=== PATIENT | male | born 2005 | race Caucasian/White ===

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

== ENCOUNTER 2024-04-08 19:00 | Inpatient (IN) | payer MEDICAID, OTHER ==
[2024-04-08 20:09] LABS: Amphetamine Screen,Urine Detected (NotDetected); Barbiturate Screen,Urine Not Detected (NotDetected); Benzodiazepines Screen,Urine Not Detected (NotDetected); Cocaine Screen,Urine Not Detected (NotDetected); Methadone Screen, Urine Not Detected (NotDetected); Opiate Screen,Urine Not Detected (NotDetected); Oxycodone Screen, Urine Not Detected (NotDetected); Phencyclidine Screen,Urine Not Detected (NotDetected); Tricyclic Antidepressant,Urine Not Detected (NotDetected); Urn Cannabinoid Scrn Detected (NotDetected)
[2024-04-08] MEDS ORDERED: HALOPERIDOL LACTATE 5 MG/ML 1 ML VIAL IM PRN (22:53)
[2024-04-08] MEDS ORDERED: QUEtiapine 25 MG TAB PO PRN (22:53)
[2024-04-08] MEDS ORDERED: ACETAMINOPHEN TAB 325 MG TAB PO PRN (22:53)
[2024-04-08] MEDS ORDERED: IBUPROFEN 600 MG TAB PO PRN (22:53)
[2024-04-08] MEDS ORDERED: MAG HYDROX/AL HYDROX/SIMETH 355 ML BOTTLE PO PRN (22:53)
[2024-04-08] MEDS ORDERED: LORazepam 2 MG/ML INJ IM PRN (22:53)
[2024-04-08] MEDS ORDERED: MAGNESIUM HYDROXIDE 2,400 MG/30 ML CUP PO PRN (22:53)
[2024-04-08] MEDS ORDERED: haloperidoL 5 MG TAB PO PRN (22:53)
[2024-04-08] MEDS ORDERED: LORazepam 1 MG TAB PO PRN (22:53)
--- NOTE | 2024-04-08 23:35 | ED ---
Psych HPI - General Chief Complaint: Psychiatric Symptoms Stated Complaint: mental health Time Seen by Provider: 04/08/24 19:18 Source: patient, family Mode of arrival: ambulatory Limitations: no limitations - History of Present Illness Initial Comments: Patient is a 19-year-old man who is here with complaints of mood swings and of having suicidal ideation. MD Complaint: other Onset/Timin -: days(s) Associated Psychiatric Symptoms: suicidal ideation, racing thoughts Quality: getting worse Improves With: none Worsens With: none Associated Symptoms: denies other symptoms - Related Data Home Medications Medication Instructions Recorded Confirmed Dextroamphetamine/Amphetamine 20 mg PO BID 04/08/24 04/08/24 [Dextroamphetamine/Amphetamine 20 mg Tab] Allergies Allergy/AdvReac Type Severity Reaction Status Date / Time No Known Allergies Allergy Verified 04/08/24 23:43 Review of Systems ROS Statement: Those systems with pertinent positive or pertinent negative responses have been documented in the HPI. ROS Other: All systems not noted in ROS Statement are negative. Constitutional: Denies: fever, chills Respiratory: Denies: cough, dyspnea Cardiovascular: Denies: chest pain, palpitations, edema Gastrointestinal: Denies: abdominal pain, nausea, vomiting, diarrhea Past Medical History Past Medical History: No Reported History History of Any Multi-Drug Resistant Organisms: None Reported Past Surgical History: No Surgical Hx Reported Past Psychological History: ADD/ADHD Smoking Status: Current every day smoker Past Alcohol Use History: None Reported, Occasional Past Drug Use History: Cocaine, Heroin, Marijuana, Opiates, Prescription Drug Abuse General Exam Limitations: no limitations General appearance: alert, in no apparent distress Head exam: Present: atraumatic, normocephalic Eye exam: Present: normal appearance. Absent: scleral icterus, conjunctival injection ENT exam: Present: normal oropharynx Neck exam: Present: normal inspection Respiratory exam: Present: normal lung sounds bilaterally. Absent: respiratory distress, wheezes, rales, rhonchi, stridor, accessory muscle use Cardiovascular Exam: Present: regular rate, normal rhythm, normal heart sounds. Absent: systolic murmur, diastolic murmur, rubs, gallop GI/Abdominal exam: Present: soft. Absent: distended, tenderness, guarding Extremities exam: Present: normal inspection, normal capillary refill. Absent: pedal edema Neurological exam: Present: alert, oriented X3 Psychiatric exam: Present: manic, suicidal ideation. Absent: depressed, agitated, homicidal ideation Skin exam: Present: warm, dry, intact, normal color. Absent: rash Course Vital Signs 04/08/24 04/08/24 19:06 23:48 Temperature 98.4 F 98.3 F Pulse Rate 89 66 Respiratory 18 17 Rate Blood Pressure 119/80 120/74 O2 Sat by Pulse 99 100 Oximetry Medical Decision Making - Medical Decision Making Was pt. sent in by a medical professional or institution (, PA, TRIM STENCIL MAKER, urgent care, hospital, or usp...) When possible be specific @ -[No] Did you speak to anyone other than the patient for history (EMS, parent, family, police, friend...)? What history was obtained from this source @ -[No] Did you review nursing and triage notes (agree or disagree)? Why? @ -[I reviewed and agree with nursing and triage notes] Were old charts reviewed (outside hosp., previous admission, EMS record, old EKG, old radiological studies, urgent care reports/EKG's, usp records)? Report findings @ -[No old charts were reviewed] Differential Diagnosis (chest pain, altered mental status, abdominal pain women, abdominal pain men, vaginal bleeding, weakness, fever, dyspnea, syncope, headach e, dizziness, GI bleed, back pain, seizure, CVA, palpatations, mental health, musculoskeletal)? @ -[Differential Mental Health Depression, anxiety, bipolar, psychosis, schizophrenia, borderline personality, situational depression, adjustment disorder, behavioral disorder, brain tumor, malingering, substance abuse, encephalopathy, medication reaction, dementia, hypothyroidism, degenerative neurologic disorder, lupus.... This is not meant to be all-inclusive list EKG interpreted by me (3pts min.). @ -[As above] X-rays interpreted by me (1pt min.). @ -[None done] CT interpreted by me (1pt min.). @ -[None done] U/S interpreted by me (1pt. min.). @ -[None done] What testing was considered but not performed or refused? (CT, X-rays, U/S, labs)? Why? @ -[None] What meds were considered but not given or refused? Why? @ -[None] Did you discuss the management of the patient with other professionals (professionals i.e. , PA, TRIM STENCIL MAKER, lab, RT, psych nurse, manager social, stiff leg operator, teacher, command and control officer, case filler)? Give summary @ -[Case discussed with EPS personnel Was smoking cessation discussed for >3mins.? @ -[No] Was critical care preformed (if so, how long)? @ -[No] Were there social determinants of health that impacted care today? How? (Homelessness, low income, unemployed, alcoholism, drug addiction, transportation, low edu. Level, literacy, decrease access to med. care, intermediate, rehab)? @ -[No] Was there de-escalation of care discussed even if they declined (Discuss DNR or withdrawal of care, Hospice)? DNR status @ -[No] What co-morbidities impacted this encounter? (DM, HTN, Smoking, COPD, CAD, Cancer, CVA, ARF, Chemo, Hep., AIDS, mental health diagnosis, sleep apnea, morbid obesity)? @ -[None] Was patient admitted / discharged? Hospital course, mention meds given and route, prescriptions, significant lab abnormalities, going to OR and other pertinent info. @ -[Patient is a 19-year-old man with worsening of his underlying psychiatric issues. He does appear to be having manic symptoms and having suicidal ideation as well. Patient will be admitted to have further evaluation and treatment Undiagnosed new problem with uncertain prognosis? @ -[No] Drug Therapy requiring intensive monitoring for toxicity (Heparin, Nitro, Insulin, Cardizem)? @ -[No] Were any procedures done? @ -[No] Diagnosis/symptom? @ -[Mood disorder with suicidal ideation. Acute, or Chronic, or Acute on Chronic? @ -[Acute Uncomplicated (without systemic symptoms) or Complicated (systemic symptoms)? @ -[Uncomplicated Side effects of treatment? @ -[No] Exacerbation, Progression, or Severe Exacerbation? @ -[No] Poses a threat to life or bodily function? How? (Chest pain, [place], AR, pneumonia, PE, COPD, DKA, ARF, appy, cholecystitis, CVA, Diverticulitis, Homicidal, Suicidal, threat to staff... and all critical care pts) @ -[Yes there is risk of progression to suicide attempt/completion - Lab Data Result diagrams: 04/09/24 08:49 04/09/24 08:49 Lab Results 04/08/24 04/08/24 04/08/24 Range/Units 19:31 19:31 19:56 Urine Color Yellow Urine Appearance Clear (Clear) Urine pH 6.0 (5.0-8.0) Ur Specific [place] 1.027 (1.001-1.035) Urine Protein 2+ H (Negative) Urine Glucose (UA) Negative (Negative) Urine Ketones Negative (Negative) Urine Blood Negative (Negative) Urine Nitrite Negative (Negative) Urine Bilirubin Negative (Negative) Urine Urobilinogen 2.0 (<2.0) mg/dL Ur Leukocyte Esterase Negative (Negative) Urine WBC 3 (0-5) /hpf Ur Squamous Epith Cells <1 (0-4) /hpf Amorphous Sediment Rare H (None) /hpf Urine Bacteria Rare H (None) /hpf Hyaline Casts 5 H (0-2) /lpf Urine Mucus Moderate H (None) /hpf Urine Opiates Screen Not Detected (NotDetected) Ur Oxycodone Screen Not Detected (NotDetected) Urine Methadone Screen Not Detected (NotDetected) Ur Barbiturates Screen Not Detected (NotDetected) U Tricyclic Antidepress Not Detected (NotDetected) Ur Phencyclidine Scrn Not Detected (NotDetected) Ur Amphetamines Screen Detected H (NotDetected) U Methamphetamines Scrn Detected H (NotDetected) U Benzodiazepines Scrn Not Detected (NotDetected) Urine Cocaine Screen Not Detected (NotDetected) U Marijuana (THC) Screen Detected H (NotDetected) SARS-CoV-2 (PCR) Not Detected (Not Detectd) Disposition Clinical Impression: Mood disorder, Suicidal ideation, Acute psychosis Disposition: ADMITTED IP TO THIS [facility] Condition: Fair Is patient prescribed a controlled substance at d/c from ED?: No
[2024-04-09 01:29] LABS: Amorphous Sediment,Urine Rare /hpf; Appearance,Urine Clear (Clear); Bacteria,Urine Rare /hpf; Bilirubin,Urine Negative (Negative); Blood,Urine Negative (Negative); Color,Urine Yellow; Glucose,Urine (UA) Negative (Negative); Hyaline Casts,Urine 5 /lpf (0-2); Ketones,Urine Negative (Negative); Leukocyte Esterase,Urine Negative (Negative); Mucus,Urine Moderate /hpf; Nitrite,Urine Negative (Negative); Protein,Urine 2+ (Negative); Specific Gravity,Urine 1.027 (1.001-1.035); Squamous Epithelial Cell,Urine <1 /hpf (0-4); WBC,Urine 3 /hpf (0-5)
[2024-04-09 09:28] LABS: Basophils # (A) 0.1 k/uL (0-0.2); Basophils % (A) 1 %; Eosinophils # (A) 0.5 k/uL (0-0.7); Eosinophils % (A) 6 %; HCT 46.1 % (39.0-53.0); HGB 15.2 gm/dL (13.0-17.5); Lymphocytes # (A) 3.3 k/uL (1.0-4.8); Lymphocytes % (A) 40 %; MCH 29.7 pg (25.0-35.0); Mean Platelet Volume 7.7; Monocytes # (A) 0.6 k/uL (0-1.0); Monocytes % (A) 7 %; Neutrophils # (A) 3.4 k/uL (1.3-7.7); Neutrophils % (A) 42 %; Platelet Count 286 k/uL (150-450); RBC 5.12 m/uL (4.30-5.90); RDW 13.5 % (11.5-15.5); WBC 8.1 k/uL (4.0-11.0)
[2024-04-09 09:45] LABS: ALT 17 U/L (4-49); AST 26 U/L (17-59); African American GFR (CKD) >90 (>60 ml/min/1.73 sqM); Albumin 4.2 g/dL (3.5-5.0); Alkaline Phosphatase 78 U/L (38-126); Anion Gap 7 mmol/L; Bilirubin, Delta 0.1 mg/dL (0.0-0.2); Bilirubin,Unconjugated 0.7 mg/dL (0.0-1.1); Blood Urea Nitrogen 13 mg/dL (9-20); Calcium 9.5 mg/dL (8.4-10.2); Carbon Dioxide 28 mmol/L (22-30); Chloride 107 mmol/L (98-107); Glucose 87 mg/dL (74-99); Non-African American GFR(CKD) >90 (>60 ml/min/1.73 sqM); Potassium 4.5 mmol/L (3.5-5.1); Sodium 142 mmol/L (137-145); Total Bilirubin 0.8 mg/dL (0.2-1.3)
[2024-04-09] MEDS: NICOTINE 14MG/24HR PATCH TRANSDERM SCH (10:06)
[2024-04-09] MEDS ORDERED: traZODone HCL 50 MG TAB PO PRN (11:52)
--- NOTE | 2024-04-09 12:12 | P.HP ---
Psychiatric H&P - . H&P Date: 04/09/24 History & Physical: Allergies Allergy/AdvReac Type Severity Reaction Status Date / Time No Known Allergies Allergy Verified 04/08/24 23:43 Vital Signs Temp 98.1 F 04/09/24 00:54 Pulse 60 04/09/24 00:54 Resp 15 04/09/24 00:54 BP 140/81 04/09/24 00:54 Pulse Ox 100 04/09/24 00:54 FiO2 Intake & Output 04/08/24 04/09/24 04/09/24 18:59 06:59 18:59 Weight 90.974 kg Laboratory Last Values Urine Color Yellow 04/08/24 19:31 Urine Appearance Clear (Clear) 04/08/24 19:31 Urine pH 6.0 (5.0-8.0) 04/08/24 19:31 Ur Specific [place] 1.027 (1.001-1.035) 04/08/24 19:31 Urine Protein 2+ (Negative) H 04/08/24 19:31 Urine Glucose (UA) Negative (Negative) 04/08/24 19:31 Urine Ketones Negative (Negative) 04/08/24 19:31 Urine Blood Negative (Negative) 04/08/24 19:31 Urine Nitrite Negative (Negative) 04/08/24 19:31 Urine Bilirubin Negative (Negative) 04/08/24 19:31 Urine Urobilinogen 2.0 mg/dL (<2.0) 04/08/24 19:31 Ur Leukocyte Esterase Negative (Negative) 04/08/24 19:31 Urine WBC 3 /hpf (0-5) 04/08/24 19:31 Ur Squamous Epith Cells <1 /hpf (0-4) 04/08/24 19:31 Amorphous Sediment Rare /hpf (None) H 04/08/24 19:31 Urine Bacteria Rare /hpf (None) H 04/08/24 19:31 Hyaline Casts 5 /lpf (0-2) H 04/08/24 19:31 Urine Mucus Moderate /hpf (None) H 04/08/24 19:31 Urine Opiates Screen Not Detected (NotDetected) 04/08/24 19:31 Ur Oxycodone Screen Not Detected (NotDetected) 04/08/24 19:31 Urine Methadone Screen Not Detected (NotDetected) 04/08/24 19:31 Ur Barbiturates Screen Not Detected (NotDetected) 04/08/24 19:31 U Tricyclic Antidepress Not Detected (NotDetected) 04/08/24 19:31 Ur Phencyclidine Scrn Not Detected (NotDetected) 04/08/24 19:31 Ur Amphetamines Screen Detected (NotDetected) H 04/08/24 19:31 U Methamphetamines Scrn Detected (NotDetected) H 04/08/24 19:31 U Benzodiazepines Scrn Not Detected (NotDetected) 04/08/24 19:31 Urine Cocaine Screen Not Detected (NotDetected) 04/08/24 19:31 U Marijuana (THC) Screen Detected (NotDetected) H 04/08/24 19:31 SARS-CoV-2 (PCR) Not Detected (Not Detectd) 04/08/24 19:56 04/09/24 08:48 IDENTIFYING DATA: Patient is a 19-year-old male. Lives between his dad and ian's house. Single, no children. Unemployed. HPI: Patient presented to the hospital on 04/08. As per EPS note, "Patient presented to ED with family for "psychotic episodes. Pt has attempted suicide 3 times in the last 3 weeks. Pt states he has a plan ot overdose." Patient assessed in ER14 from [id number]. Patient states chief complaint "mental health". Patient verbalizes suicidal ideation with a plan to cut self. Patient verbalizes two previous suicide attempts via overdose, last being approx 3 months ago. Patient has history of self harm including cigarette burn and cutting hand superficially. Patient denies any recent stressors, verbalizes he lost his job about 6 months ago when asked about employment. Patient verbalizes homicidal ideations stating "I can kill anyone when I get mad" denies any specific target, and denies any attempts to harm others. Patient verbalizes paranoia stating he thinks people are trying to read his mind. Patient verbalizes auditory hallucinations of voices talking, states he talks back and they respond, but they are not his own thoughts. Patient verbalizes visual hallucinations of "objects changing", describes that if he is looking at a picture the picture will be moving around. Patient states he also sees faces in objects, and sees moving shadows. Patient feels like he has no support system, feels often that his friends and family are messing with his head. Patient verbalizes substance use including meth, cocaine, amphetamines and marijuana. States his only home medication is Adderall. Patient verbalizes alcohol use 1-2x/week, last drink 5 days to 1 wk ago. States he drinks about a fifth when drinking. States he drinks "as much as I can until I pass out". Patient denies anything he is looking foward to or any goals. Patient denies any hobbies. Patient verbalizes he has poor appetite, stating he goes multiple days without eating. Verbalizes poor sleep, sleeping every 3-6 days but awake for multiple days with no sleep related to substance use." Upon today's interview, he states he got picked up by the police yesterday, after 'freaking out'. And they brought him to the hospital. He states he was walking around with a knife. He states he does not know why he had a knife. He states he was using alot of meth daily, for the past 6 months. He has been hearing voices, generally repeating what he says in his mind, or what others say. He claims he gets anxiety when he is social. He states he is depressed, and thinks about getting revenge. He is currently not having AH or VH. He states that he doesn't really have any SI/HI. He does present with some paranoia, thinking someone is out to get him. He said just in general, no specific. He states he is hungry, but he does not like to ask people for things. He does not endorse good sleep. patient was fairly constricted, poor eye contact, mildly irritable. poor hygiene. Patient denies any suicidal or homicidal ideations intent or plan. At this time patient denies any auditory or visual hallucinations. Patient admits to using methamphetamines, cocaine, marijuana, pain killers, benzos, alcohol, cigarettes. PAST PSYCHIATRIC HISTORY: Patient states that he has been diagnosed with ADHD. Patient denies being on any psychiatric medications. Patient denies any previous psychiatric hospitalizations. Patient denies any psychiatric outpatient follow- up. Patient states he has had 4 attempts at suicide, two by cutting, two by OD PMH:As per ER note ALLERGIES: as per EMR CHEMICAL DEPENDENCY HISTORY: as per HPI FAMILY PSYCHIATRIC/SUBSTANCE USE HISTORY: brother has been admitted psychiatrically twice SOCIAL HISTORY: Patient was born and raised in [place], [place]. Dropped out in high school. Stopped passing school in 5th grade. Single, lives between his dad and ian's house. No children. Unemployed, and denies legal problems.. MENTAL STATUS EXAM: General Appearance: Patient appears to be stated age is alert, [directable, and attempts to cooperate]. Patient appears to have [poor] hygiene and grooming. tall, dressed casually, wearing a hoodie with the boyd on. Behavior: Patient is seated without any agitated behavior. Poor eye contact, withdrawn Speech: Patient's speech is fluent and nonpressured. monotone Mood/Affect: Patient reports their mood is [depressed], affect is congruent and constricted Suicidality/Homicidality: Patient denies having any homicidal ideation intent or plan. [Denies any suicidal ideations intent or plan] Perceptions: Patient denies any visual hallucinations [and denies any auditory hallucinations] Though content/process: [There is no evidence of any delusional thought content and thought process guarded and vague Memory and concentration: AOX3, grossly intact for the purposes of this session. Can spell "WORLD" backwards Judgment and insight: [poor] STRENGTHS/WEAKNESSES: strength is that patient is [resilient]. Weakness is that patient [has poor judgment and is impulsive] INTELLECT: [average] IMPRESSIONS: psychosis, unspecified benzodiazepine abuse opiate abuse cocaine abuse methamphetamine abuse [nicotine dependance] [cannabis use disorder] homelessness PLAN: -Patient is admitted under [voluntary] status to MHU for stabilization of psychiatric symptoms and safety. Patient has signed adult voluntary form and medication consent and is placed in patient's chart. -Medications : Will start patient on Geodon 20mg qhs for mood stabilization/psychosis, Zoloft 25mg qhs for mood/anxiety, trazodone 50 qhs prn for insomnia -Ativan [and Haldol] PRN for agitation/aggression -Order EKG -Patient was counselled on substance abuse and desired to cut back on use] -Patient was informed of the risks, benefits and side effects of the medication and patient verbally consented to taking the medications. -Internal Medicine consult to perform medical evaluation and physical. -NRT - [nicotine patch] -SW on board for discharge planning. Encourage patient to participate in groups to work on coping skills.
--- NOTE | 2024-04-09 14:28 | P.CONS ---
History of Present Illness - Reason for Consult Consult date: 04/09/24 [facility] admission - History of Present Illness B[place]ark is a 19-year-old male known to the practice. He is primarily treating the office for attention deficit disorder. Patient, psychiatry already. He denies any current health issues other than his skin becomes blotchy when he becomes dehydrated. He presented to emergency room yesterday because of a psychotic episode and suicide attempt. He currently denies any chest pain, pressure, shortness of breath, nausea or vomiting Staff indicate substance abuse is a problem Review of Systems All systems: negative Past Medical History Past Medical History: No Reported History History of Any Multi-Drug Resistant Organisms: None Reported Past Surgical History: No Surgical Hx Reported Past Anesthesia/Blood Transfusion Reactions: No Reported Reaction Past Psychological History: ADD/ADHD, Anxiety, Depression, PTSD Smoking Status: Current every day smoker, Vaper Past Alcohol Use History: Heavy, Occasional Past Drug Use History: Cocaine, Heroin, Marijuana, Methamphetamine, Opiates, Prescription Drug Abuse Medications and Allergies Home Medications Medication Instructions Recorded Confirmed Type Dextroamphetamine/Amphetamine 20 mg PO BID 04/08/24 04/08/24 History [Dextroamphetamine/Amphetamine 20 mg Tab] Allergies Allergy/AdvReac Type Severity Reaction Status Date / Time No Known Allergies Allergy Verified 04/08/24 23:43 Physical Exam Vitals: Vital Signs Temp Pulse Pulse Resp BP BP Pulse Ox 04/09/24 08:00 95 18 128/87 95 04/09/24 00:54 98.1 F 60 15 140/81 100 04/08/24 23:48 98.3 F 66 17 120/74 100 04/08/24 19:06 98.4 F 89 18 119/80 99 Intake and Output 04/08/24 04/09/24 04/09/24 22:59 06:59 14:59 Other: Weight 90.718 kg 90.974 kg GENERAL: Thin male and in no acute distress. HEAD: Atraumatic, normocephalic. EYES: Pupils equal round and reactive to light, extraocular movements intact, sclera anicteric, conjunctiva are normal. ENT:nares patent, oropharynx clear without exudates. Moist mucous membranes. NECK: Normal range of motion, supple without lymphadenopathy or JVD, no thyromegaly LUNGS: Breath sounds clear to auscultation bilaterally and equal. No wheezes rales or rhonchi. HEART: Regular rate and rhythm without murmurs, rubs or gallops.S1S2 Normal ABDOMEN: Soft, nontender, normoactive bowel sounds. No guarding, no rebound. No masses appreciated. EXTREMITIES: Normal range of motion, no pitting or edema. No clubbing or cyanosis. NEUROLOGICAL: Cranial nerves II through XII grossly intact. Normal speech, normal gait. PSYCH: Patient is not making eye contact with me, his head is down, he is answering questions with short brief answers. Affect is depressed SKIN: Warm, Dry, normal turgor, no rashes or lesions noted. Results CBC & Chem 7: 04/09/24 08:49 04/09/24 08:49 Labs: Abnormal Lab Results - Last 24 Hours (Table) 04/08/24 04/08/24 Range/Units 19:31 19:31 Urine Protein 2+ H (Negative) Amorphous Sediment Rare H (None) /hpf Urine Bacteria Rare H (None) /hpf Hyaline Casts 5 H (0-2) /lpf Urine Mucus Moderate H (None) /hpf Ur Amphetamines Screen Detected H (NotDetected) U Methamphetamines Scrn Detected H (NotDetected) U Marijuana (THC) Screen Detected H (NotDetected) Assessment and Plan (1) Methamphetamine abuse Current Visit: Yes Status: Acute Code(s): F15.10 - OTHER STIMULANT ABUSE, UNCOMPLICATED SNOMED Code(s): 428074094 (2) ADHD Current Visit: Yes Status: Acute Code(s): F90.9 - ATTENTION-DEFICIT HYPERACTIVITY DISORDER, UNSPECIFIED TYPE SNOMED Code(s): 083244352 (3) Polysubstance (excluding opioids) dependence Current Visit: Yes Status: Acute Code(s): F19.20 - OTHER PSYCHOACTIVE SUBSTANCE DEPENDENCE, UNCOMPLICATED SNOMED Code(s): 30061975 (4) Acute psychosis Current Visit: Yes Status: Acute Code(s): F23 - BRIEF PSYCHOTIC DISORDER SNOMED Code(s): 86940017386876 (5) Mood disorder Current Visit: Yes Status: Acute Code(s): F39 - UNSPECIFIED MOOD [AFFECTIVE] DISORDER SNOMED Code(s): 16216847 (6) Suicidal ideation Current Visit: Yes Status: Acute Code(s): R45.851 - SUICIDAL IDEATIONS SNOMED Code(s): 8759942 Plan: Medically as he appears stable, his labs are normal with the exception of protein in his urine, he was positive for marijuana methamphetamine and amphetamines, kidney functions CBC white count are normal. He will follow-up with psychiatry and God willing will overcome his drug abuse and dependence issues. Will follow-up with him as needed. Thank you for allowing us to participate in his care
[2024-04-09 15:13] LABS: Chol/HDL Ratio 4.08 Ratio; LDL Cholesterol,Calculated 117.2 mg/dL (0.0-131.0)
[2024-04-09] MEDS: SERTRALINE 25 MG TAB PO SCH (21:21)
[2024-04-09] MEDS: ZIPRASIDONE 20 MG CAP PO SCH (21:21)
--- NOTE | 2024-04-10 11:44 | P.PN ---
Progress Note - Text Progress Note Date: 04/10/24 Interval History: Patient was seen laying in bed today, auto service writer approached patient to speak with him in the office however patient declined at this time, did not want to answer any questions. MENTAL STATUS EXAM: General Appearance: Patient appears to be stated age is alert, uncooperative. Patient appears to have poor hygiene and grooming. tall, dressed casually, wearing a hoodie with the boyd on. Behavior: Patient is seated without any agitated behavior. Poor eye contact, withdrawn. uncooperative. Speech: Patient's speech is fluent and nonpressured. monotone Mood/Affect: Unable to assess Suicidality/Homicidality: Unable to assess Perceptions: Unable to assess Though content/process: [place] Memory and concentration: Unable to assess Judgment and insight: Poor IMPRESSIONS: psychosis, unspecified benzodiazepine abuse opiate abuse cocaine abuse methamphetamine abuse Nicotine dependance Cannabis use disorder homelessness PLAN: -Patient is admitted under voluntary status to MHU for stabilization of psychiatric symptoms and safety. Patient has signed adult voluntary form and [facility] consent and is placed in patient's chart. -Medications : Geodon 20mg qhs for mood stabilization/psychosis, increase Zoloft 50 mg qhs for mood/anxiety, trazodone 50 qhs prn for insomnia -Ativan and Haldol PRN for agitation/aggression -reviewed ekg -NRT -nicotine patch -SW on board for discharge planning. Encourage patient to participate in groups to work on coping skills.
[2024-04-10] MEDS: SERTRALINE 50 MG TAB PO SCH (21:22)
--- NOTE | 2024-04-11 10:07 | P.PN ---
Progress Note - Text Progress Note Date: 04/11/24 Interval History: Patient was seen laying in bed today, he was agreeable to speak to entry writer today. He claims that his mood is still poor at times, he has been been continuing to mainly isolate in his room laying in bed. States that he had on and off sleep last night. Claims that he is only going to lunch and dinner. Not going to any groups at this time. Continues to endorse anhedonia. Not endorsing any auditory or visual hallucinations. Denying any suicidal homicidal ideations intent or plan. He has been taking his medications not reporting any side effects at this time. MENTAL STATUS EXAM: General Appearance: Patient appears to be stated age is alert, mainly uncooperative. Patient appears to have poor hygiene and grooming. tall, dressed casually, wearing a hoodie with the boyd on. Behavior: Patient is seated without any agitated behavior. Poor eye contact, withdrawn. Speech: Patient's speech is fluent and nonpressured. monotone Mood/Affect: Claims that his mood is still depressed, affect is constricted. Suicidality/Homicidality: denies Perceptions: denies Though content/process: [place], poverty of content Memory and concentration: alert and oriented x3 Judgment and insight: Poor, improving mildly IMPRESSIONS: psychosis, unspecified benzodiazepine abuse opiate abuse cocaine abuse methamphetamine abuse Nicotine dependance Cannabis use disorder homelessness PLAN: -Patient is admitted under voluntary status to MHU for stabilization of psychiatric symptoms and safety. Patient has signed adult voluntary form and medication consent and is placed in patient's chart. -Medications : d/c Geodon and replace with Invega 3 mg qhs for psychosis/mood stabilization, Zoloft 50 mg qhs for mood/anxiety, trazodone 50 qhs prn for insomnia -Ativan and Haldol PRN for agitation/aggression -NRT -nicotine patch -SW on board for discharge planning. Encourage patient to participate in groups to work on coping skills. continuing to refuse rehab.
[2024-04-11] MEDS: PALIPERIDONE 3 MG TAB.ER.24 PO SCH (22:44)
--- NOTE | 2024-04-12 11:18 | P.PN ---
Progress Note - Text Progress Note Date: 04/12/24 Interval History: Patient was seen laying in bed today, he was agreeable to speak to law writer today. Patient appeared to be less irritable today. He continues to be fairly concrete, withdrawn to his room. Only coming out for meals. States that he is not participating in groups. Continues to endorse depression and anxiety. He claims that his sleep continues to be poor. Continues to have anhedonia. Not going to any groups at this time. Instructed affect. Not endorsing any auditory or visual hallucinations. Denying any suicidal homicidal ideations intent or plan. He has been taking his medications not reporting any side effects at this time. MENTAL STATUS EXAM: General Appearance: Patient appears to be stated age is alert, mainly uncooperative. Patient appears to have poor hygiene and grooming. tall, dressed casually Behavior: Patient is seated without any agitated behavior. Poor eye contact, withdrawn. Speech: Patient's speech is fluent and nonpressured. monotone Mood/Affect: Claims that his mood is still depressed, affect is constricted. Suicidality/Homicidality: denies Perceptions: denies Though content/process: [place], poverty of content Memory and concentration: alert and oriented x3 Judgment and insight: Poor, improving mildly IMPRESSIONS: psychosis, unspecified benzodiazepine abuse opiate abuse cocaine abuse methamphetamine abuse Nicotine dependance Cannabis use disorder homelessness PLAN: -Patient is admitted under voluntary status to MHU for stabilization of psychiatric symptoms and safety. Patient has signed adult voluntary form and medication consent and is placed in patient's chart. -Medications : Invega 3 mg qhs for psychosis/mood stabilization, DC Zoloft and replace with Wellbutrin XL 150 mg daily for mood. trazodone 50 qhs for insomnia/mood -Ativan and Haldol PRN for agitation/aggression -NRT -nicotine patch -SW on board for discharge planning. Encourage patient to participate in groups to work on coping skills. continuing to refuse rehab.
[2024-04-12] MEDS: buPROPion XL 150 MG TAB.ER.24H PO SCH (13:55)
[2024-04-12] MEDS: traZODone HCL 50 MG TAB PO SCH (21:09)
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
[2024-04-14 12:23] VITALS: RESP 16
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
--- NOTE | 2024-04-15 10:24 | P.PN ---
Progress Note - Text Progress Note Date: 04/15/24 Interval History: Patient was seen in his room today and was agreeable to speak with this procedure writer at the bedside. Patient is more cooperative today. He states he is doing good. He has been more visible on the unit, and has been attending some groups. He was previously not getting up for breakfast, but is now. He is uninterested in attending rehab. He endorses good sleep, and reports a good mood, and low anxiety. Not endorsing any auditory or visual hallucinations. Denying any suicidal and homicidal ideation, intent or plan. He has been taking his medications and denies any side effects at this time. MENTAL STATUS EXAM: General Appearance: Patient appears to be stated age is alert, mainly uncooperative. Patient appears to have improved hygiene and grooming. tall, dressed casually Behavior: Patient is seated without any agitated behavior. Improved eye contact Speech: Patient's speech is fluent and nonpressured. Mood/Affect: Claims that his mood is good, affect is congruent. mildly improving Suicidality/Homicidality: denies Perceptions: denies Though content/process: [place], improving mildly Memory and concentration: alert and oriented x3 Judgment and insight: Poor, improving mildly IMPRESSIONS: psychosis, unspecified benzodiazepine abuse opiate abuse cocaine abuse methamphetamine abuse Nicotine dependance Cannabis use disorder homelessness PLAN: -Patient is admitted under voluntary status to [facility] for stabilization of psychiatric symptoms and safety. Patient has signed adult voluntary form and medication consent and is placed in patient's chart. -Medications : Invega 3 mg qhs for psychosis/mood stabilization, increase Wellbutrin XL 300 mg daily for mood. trazodone 50 qhs for insomnia/mood -Ativan and Haldol PRN for agitation/aggression -NRT -nicotine patch - on board for discharge planning. Encourage patient to participate in groups to work on coping skills. continuing to refuse rehab. POssible discharge 2-3 days, if patient continues to improve.
[2024-04-15] MEDS: buPROPion XL 150 MG TAB.ER.24H PO STA (13:09)
[2024-04-16 06:58] VITALS: BP 102/53; PULSE 58; TEMP 98
[2024-04-16] MEDS: buPROPion XL 300 MG TAB.ER.24H PO SCH (09:34)
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
== END 2024-04-16 18:06 | disposition home or self-care (01) | DRG 751 ==
LOC: EC 19:00 → 3MHU 22:53
PROVIDERS: ADMIT Psychiatry & Neurology Psychiatry; ATTEND Psychiatry & Neurology Psychiatry
DX: F29 Unspecified psychosis not due to a substance or known physiological condition (principal); F11.10 Opioid abuse, uncomplicated; F12.10 Cannabis abuse, uncomplicated; F13.10 Sedative, hypnotic or anxiolytic abuse, uncomplicated; F14.10 Cocaine abuse, uncomplicated; F15.10 Other stimulant abuse, uncomplicated; F17.200 Nicotine dependence, unspecified, uncomplicated; F19.20 Other psychoactive substance dependence, uncomplicated; F23 Brief psychotic disorder; F32.A Depression, unspecified; F41.9 Anxiety disorder, unspecified; F43.10 Post-traumatic stress disorder, unspecified; F90.9 Attention-deficit hyperactivity disorder, unspecified type; G47.00 Insomnia, unspecified; R45.851 Suicidal ideations; Z59.00 Homelessness unspecified; Z79.899 Other long term (current) drug therapy; Z91.51 Personal history of suicidal behavior; Z91.52 Personal history of nonsuicidal self-harm; Z11.52 Encounter for screening for COVID-19
CPT/HCPCS: 80053; 80061; 80306; 81001; 82075; 82248; 83036; 84443; 85025; 87635; 93005; 99285

== ENCOUNTER 2024-06-08 16:01 | Inpatient (IN) | payer MEDICAID, OTHER ==
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
[2024-06-08 17:30] LABS: Amphetamine Screen,Urine Detected (NotDetected); Barbiturate Screen,Urine Not Detected (NotDetected); Benzodiazepines Screen,Urine Not Detected (NotDetected); Cocaine Screen,Urine Not Detected (NotDetected); Methadone Screen, Urine Not Detected (NotDetected); Opiate Screen,Urine Not Detected (NotDetected); Oxycodone Screen, Urine Not Detected (NotDetected); Phencyclidine Screen,Urine Not Detected (NotDetected); Tricyclic Antidepressant,Urine Not Detected (NotDetected); Urn Cannabinoid Scrn Detected (NotDetected)
[2024-06-08] MEDS ORDERED: MAGNESIUM HYDROXIDE 2,400 MG/30 ML CUP PO PRN (21:13)
[2024-06-08] MEDS ORDERED: HALOPERIDOL LACTATE 5 MG/ML 1 ML VIAL IM PRN (21:13)
[2024-06-08] MEDS ORDERED: IBUPROFEN 600 MG TAB PO PRN (21:13)
[2024-06-08] MEDS ORDERED: traZODone HCL 50 MG TAB PO PRN (21:13)
[2024-06-08] MEDS ORDERED: haloperidoL 5 MG TAB PO PRN (21:13)
[2024-06-08] MEDS ORDERED: MAG HYDROX/AL HYDROX/SIMETH 355 ML BOTTLE PO PRN (21:13)
[2024-06-08] MEDS ORDERED: ACETAMINOPHEN TAB 325 MG TAB PO PRN (21:13)
[2024-06-08] MEDS ORDERED: LORazepam 2 MG/ML INJ IM PRN (21:13)
[2024-06-08] MEDS ORDERED: LORazepam 1 MG TAB PO PRN (21:13)
[2024-06-09 02:30] LABS: Amorphous Sediment,Urine Occasional /hpf; Appearance,Urine Cloudy (Clear); Bacteria,Urine Rare /hpf; Bilirubin,Urine Negative (Negative); Blood,Urine Trace (Negative); Color,Urine Yellow; Glucose,Urine (UA) Negative (Negative); Hyaline Casts,Urine 157 /lpf (0-2); Ketones,Urine Negative (Negative); Leukocyte Esterase,Urine Negative (Negative); Mucus,Urine Many /hpf; Nitrite,Urine Negative (Negative); Protein,Urine 1+ (Negative); RBC,Urine 1 /hpf (0-5); Specific Gravity,Urine 1.017 (1.001-1.035); Squamous Epithelial Cell,Urine 1 /hpf (0-4); Urobilinogen,Urine <2.0 mg/dL (<2.0); WBC,Urine 1 /hpf (0-5)
--- NOTE | 2024-06-09 03:55 | P.PN ---
Progress Note - Text Progress Note Date: 06/09/24 patient refused medical evaluation at this time
[2024-06-09 07:23] LABS: Basophils # (A) 0.1 k/uL (0-0.2); Basophils % (A) 1 %; Eosinophils # (A) 0.3 k/uL (0-0.7); Eosinophils % (A) 4 %; HCT 47.2 % (39.0-53.0); HGB 15.8 gm/dL (13.0-17.5); Lymphocytes # (A) 2.8 k/uL (1.0-4.8); Lymphocytes % (A) 30 %; MCH 29.6 pg (25.0-35.0); MCHC 33.4 g/dL (31.0-37.0); MCV 88.8 fL (80.0-100.0); Mean Platelet Volume 7.8; Monocytes # (A) 0.7 k/uL (0-1.0); Monocytes % (A) 7 %; Neutrophils # (A) 5.1 k/uL (1.3-7.7); Neutrophils % (A) 56 %; Platelet Count 269 k/uL (150-450); RBC 5.32 m/uL (4.30-5.90); RDW 12.9 % (11.5-15.5); WBC 9.2 k/uL (4.0-11.0)
[2024-06-09 07:57] LABS: ALT 17 U/L (4-49); AST 22 U/L (17-59); African American GFR (CKD) >90 (>60 ml/min/1.73 sqM); Albumin 4.8 g/dL (3.5-5.0); Alkaline Phosphatase 89 U/L (38-126); Anion Gap 12 mmol/L; Bilirubin, Delta 0.1 mg/dL (0.0-0.2); Bilirubin,Unconjugated 0.8 mg/dL (0.0-1.1); Blood Urea Nitrogen 14 mg/dL (9-20); Calcium 9.9 mg/dL (8.4-10.2); Carbon Dioxide 25 mmol/L (22-30); Chloride 103 mmol/L (98-107); Glucose 93 mg/dL (74-99); Non-African American GFR(CKD) >90 (>60 ml/min/1.73 sqM); Potassium 4.1 mmol/L (3.5-5.1); Sodium 140 mmol/L (137-145); Total Bilirubin 0.9 mg/dL (0.2-1.3); Total Protein 7.7 g/dL (6.3-8.2)
[2024-06-09] MEDS: NICOTINE 14MG/24HR PATCH TRANSDERM SCH (09:16)
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
[2024-06-09 12:47] LABS: Chol/HDL Ratio 4.99 Ratio; LDL Cholesterol,Calculated 144.5 mg/dL (0.0-131.0); VLDL Calculation 16.18 mg/dL (5.00-40.00)
[2024-06-09] MEDS: PALIPERIDONE 3 MG TAB.ER.24 PO SCH (20:56)
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
[2024-06-10] MEDS: SERTRALINE 50 MG TAB PO SCH (20:47)
--- NOTE | 2024-06-11 10:20 | P.PN ---
Progress Note - Text Progress Note Date: 06/11/24 Interval history: Patient was seen today for psychiatric follow-up. Patient was laying in bed t lizet. Continues to be fairly concrete, continued isolating on the unit. He has not been going to many groups at all. Claims that he is sleeping throughout the night. He has been taking his medications not reporting any side effects. Continues to state that he does not want to go to rehab. He has very poor insight poor judgment. Endorsing depression at this time, mild anxiety. States that he is sleeping a lot at nighttime and during the day, fair appetite. Denies any auditory or visual hallucinations, denies any suicidal homicidal ideations intent or plan. MENTAL STATUS EXAM: General Appearance: Patient appears to be stated age is somewhat tired, directable, and attempts to cooperate. Patient appears to have poor hygiene and grooming. Disheveled appearance Behavior: Patient laying in bed without any agitated behavior. Fairly nonchalant Speech: Patient's speech is fluent and nonpressured. Monotone, concrete Mood/Affect: Patient reports their mood is "the same", affect is congruent and constricted. Suicidality/Homicidality: Patient denies having any homicidal ideation intent or plan. Denies any suicidal ideations intent or plan Perceptions: Patient denies any visual hallucinations and denies any auditory hallucinations. Though content/process: There is no evidence of any delusional thought content and thought process is linear and goal-directed. Poverty of content. Memory and concentration: AOX3, grossly intact for the purposes of this session. Judgment and insight: poor IMPRESSIONS: - Schizophrenia and other unspecified psychiatric disorder, rule out due to substance abuse - Methamphetamine use disorder - Cannabis use disorder - Nicotine disorder PLAN: -Patient is admitted under voluntary status to [facility]HU for stabilization of psychiatric symptoms and safety. Patient has signed adult voluntary form and medication consent and is placed in patient's chart. -Medications : Invega 3 mg p.o. at bedtime for psychosis trazodone 50 mg p.o. at bedtime as needed for sleep Discontinue Zoloft replace with Wellbutrin XL 150 mg daily for mood -Ativan and Haldol PRN for agitation/aggression -NRT - nicotine patch -SW on board for discharge planning. Encourage patient to participate in groups to work on coping skills. Patient is refusing rehab. Likely discharge either -Monday back to grandma's house if patient is improving.
[2024-06-11] MEDS: buPROPion XL 150 MG TAB.ER.24H PO SCH (13:50)
--- NOTE | 2024-06-12 11:45 | P.PN ---
Progress Note - Text Progress Note Date: 06/12/24 Interval history: Patient was seen today for psychiatric follow-up. Patient was laying in bed to day. Continues to be fairly concrete, does not report any overnight events. He continues to be fairly isolative on the unit. He has not been going to many groups. Claims that he is sleeping throughout the night. Claims that his mood is improving. He has been taking his medications not reporting any side effects. Continues to state that he does not want to go to rehab. States that he is sleeping at nighttime and during the day, fair appetite. Denies any auditory or visual hallucinations, denies any suicidal homicidal ideations intent or plan. MENTAL STATUS EXAM: General Appearance: Patient appears to be stated age is somewhat tired, directable, and attempts to cooperate. Patient appears to have poor hygiene and grooming. Disheveled appearance Behavior: Patient laying in bed without any agitated behavior. Fairly nonchalant Speech: Patient's speech is fluent and nonpressured. Monotone, concrete Mood/Affect: Patient reports their mood is "a bit better", affect is congruent and constricted. Suicidality/Homicidality: Patient denies having any homicidal ideation intent or plan. Denies any suicidal ideations intent or plan Perceptions: Patient denies any visual hallucinations and denies any auditory hallucinations. Though content/process: There is no evidence of any delusional thought content and thought process is linear and goal-directed. Poverty of content. Memory and concentration: AOX3, grossly intact for the purposes of this session. Judgment and insight: poor, improving mildly IMPRESSIONS: - Schizophrenia and other unspecified psychiatric disorder, rule out due to substance abuse - Methamphetamine use disorder - Cannabis use disorder - Nicotine disorder PLAN: -Patient is admitted under voluntary status to MHU for stabilization of psychiatric symptoms and safety. Patient has signed adult voluntary form and medication consent and is placed in patient's chart. -Medications : Invega 3 mg p.o. at bedtime for psychosis trazodone 50 mg p.o. at bedtime as needed for sleep Increase Wellbutrin XL 300 mg daily for mood -Ativan and Haldol PRN for agitation/aggression -NRT - nicotine patch -SW on board for discharge planning. Encourage patient to participate in groups to work on coping skills. Patient is refusing rehab. Likely discharge either Monday back to [facility] if patient is improving.
[2024-06-13] MEDS: buPROPion XL 300 MG TAB.ER.24H PO SCH (08:45)
[2024-06-13] MEDS: NICOTINE 14MG/24HR PATCH TRANSDERM SCH (08:58)
--- NOTE | 2024-06-13 09:52 | P.PN ---
Progress Note - Text Progress Note Date: 06/13/24 Interval history: Patient was seen today for psychiatric follow-up. Patient was laying in bed to day once again today. He was seen earlier up for meals and wandering the hallway then went back to his room. Continues to be fairly concrete. Did not endorse any overnight complaints, states that he is feeling "okay" today. He continues to have fairly superficial/poor insight into his substance use. We spoke about discharge planning he still wants to go to his grandmother's house. He has not been going to many groups. Claims that he is sleeping throughout the night. Claims that his mood is improving. He has been taking his medications not reporting any side effects. States that he is sleeping at nighttime and during the day, fair appetite. Denies any auditory or visual hallucinations, denies any suicidal homicidal ideations intent or plan. MENTAL STATUS EXAM: General Appearance: Patient appears to be stated age is somewhat tired, directable, and attempts to cooperate. Patient appears to have mildly improving hygiene and grooming Behavior: Patient laying in bed without any agitated behavior. Fairly nonchalant Speech: Patient's speech is fluent and nonpressured. Monotone, concrete Mood/Affect: Patient reports their mood is "better", affect is congruent and mildly improving Suicidality/Homicidality: Patient denies having any homicidal ideation intent or plan. Denies any suicidal ideations intent or plan Perceptions: Patient denies any visual hallucinations and denies any auditory hallucinations. Though content/process: There is no evidence of any delusional thought content and thought process is linear and goal-directed. Poverty of content. Memory and concentration: AOX3, grossly intact for the purposes of this session. Judgment and insight: poor, improving mildly IMPRESSIONS: - Schizophrenia and other unspecified psychiatric disorder, rule out due to sub stance abuse - Methamphetamine use disorder - Cannabis use disorder - Nicotine disorder PLAN: -Patient is admitted under voluntary status to MHU for stabilization of psychiatric symptoms and safety. Patient has signed adult voluntary form and medication consent and is placed in patient's chart. -Medications : Invega 3 mg p.o. at bedtime for psychosis trazodone 50 mg p.o. at bedtime as needed for sleep Increase Wellbutrin XL 300 mg daily for mood -Ativan and Haldol PRN for agitation/aggression -NRT - nicotine patch -SW on board for discharge planning. Encourage patient to participate in groups to work on coping skills. Patient is refusing rehab. Likely discharge Monday back to [facility] if patient is improving.
[2024-06-14 06:55] VITALS: BP 103/79; PULSE 79; RESP 14; TEMP 97.5
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
== END 2024-06-14 12:13 | disposition home or self-care (01) | DRG 750 ==
LOC: EC 16:01 → 3MHU 21:07
PROVIDERS: ADMIT Psychiatry & Neurology Psychiatry; ATTEND Psychiatry & Neurology Psychiatry
DX: F29 Unspecified psychosis not due to a substance or known physiological condition (principal); R45.850 Homicidal ideations; F15.10 Other stimulant abuse, uncomplicated; F32.A Depression, unspecified; F14.10 Cocaine abuse, uncomplicated; F11.10 Opioid abuse, uncomplicated; F10.10 Alcohol abuse, uncomplicated; Z59.01 Sheltered homelessness; F17.210 Nicotine dependence, cigarettes, uncomplicated; F41.9 Anxiety disorder, unspecified; F90.9 Attention-deficit hyperactivity disorder, unspecified type; T43.506A Underdosing of unspecified antipsychotics and neuroleptics, initial encounter; E78.00 Pure hypercholesterolemia, unspecified; F17.290 Nicotine dependence, other tobacco product, uncomplicated; Y04.0XXA Assault by unarmed brawl or fight, initial encounter; Y07.410 Brother, perpetrator of maltreatment and neglect; Z91.51 Personal history of suicidal behavior; Z79.899 Other long term (current) drug therapy; Z91.128 Patient's intentional underdosing of medication regimen for other reason; Z56.0 Unemployment, unspecified
CPT/HCPCS: 80053; 80061; 80306; 81001; 82075; 82248; 83036; 84443; 85025; 87636; 93005; 99285

== ENCOUNTER 2024-07-04 05:55 | Inpatient (IN) | payer OTHER ==
[2024-07-04 06:22] LABS: Basophils # (A) 0.1 k/uL (0-0.2); Basophils % (A) 1 %; Eosinophils # (A) 0.1 k/uL (0-0.7); Eosinophils % (A) 2 %; HCT 45.5 % (39.0-53.0); HGB 14.9 gm/dL (13.0-17.5); Lymphocytes # (A) 1.2 k/uL (1.0-4.8); Lymphocytes % (A) 14 %; MCH 29.9 pg (25.0-35.0); MCHC 32.7 g/dL (31.0-37.0); MCV 91.6 fL (80.0-100.0); Mean Platelet Volume 7.4; Monocytes # (A) 0.4 k/uL (0-1.0); Monocytes % (A) 5 %; Neutrophils # (A) 6.3 k/uL (1.3-7.7); Neutrophils % (A) 77 %; Platelet Count 272 k/uL (150-450); RBC 4.97 m/uL (4.30-5.90); WBC 8.2 k/uL (4.0-11.0)
[2024-07-04] MEDS: SODIUM CHLORIDE 0.9% 1,000 ML IV STA (06:26)
--- NOTE | 2024-07-04 07:12 | CT ---
EXAMINATION TYPE: CT brain wo con CT DLP: 1243.4 mGycm, Automated exposure control for dose reduction was used. DATE OF EXAM: 07/04/2024 6:47 AM COMPARISON: None. CLINICAL INDICATION:Male, 19 years old with history of seizure activity, TECHNIQUE: Brain: Multiple axial CT images of the brain were obtained without IV contrast. . Coronal and sagitta l reformats reviewed. FINDINGS: Brain: Extra-axial spaces: No abnormal extra-axial fluid collections. Ventricular system: Within normal limits Cerebral parenchyma: No acute intraparenchymal hemorrhage or mass effect. The mendoza-white junction is well differentiated. Cerebellum: Unremarkable. Mass effect: No evidence of midline shift. Intracranial vasculature: unremarkable Soft tissues: Normal. Calvarium/osseous structures: No depressed skull fracture. Paranasal sinuses and mastoid air cells: Mastoid air cells are clear. Left maxillary sinus 1.8 cm raphael yp versus mucous retention cysts. Minimal mucosal thickening of the right maxillary sinus. The spheno id sinuses are clear. The frontal sinuses are clear. Mild right ethmoid sinus mucosal thickening. The left ethmoid sinus is clear. Visualized orbits: Orbital contents are intact. IMPRESSION: No acute intracranial process. [facility], , 07/04/2024 7:10 AM
[2024-07-04 07:16] LABS: ALT 18 U/L (4-49); AST 25 U/L (17-59); Acetaminophen <10.0 ug/mL; African American GFR (CKD) >90 (>60 ml/min/1.73 sqM); Albumin 4.9 g/dL (3.5-5.0); Alcohol <10 mg/dL; Alkaline Phosphatase 88 U/L (38-126); Anion Gap 19 mmol/L; Blood Urea Nitrogen 9 mg/dL (9-20); Calcium 9.7 mg/dL (8.4-10.2); Carbon Dioxide 18 mmol/L (22-30); Chloride 103 mmol/L (98-107); Glucose 127 mg/dL (74-99); Magnesium 1.9 mg/dL (1.6-2.3); Non-African American GFR(CKD) >90 (>60 ml/min/1.73 sqM); Potassium 3.7 mmol/L (3.5-5.1); Salicylate <1.0 mg/dL; Sodium 140 mmol/L (137-145); Total Bilirubin 0.6 mg/dL (0.2-1.3); Total Protein 7.9 g/dL (6.3-8.2)
--- NOTE | 2024-07-04 08:23 | ED ---
Seizure HPI - General Chief Complaint: Seizure Stated Complaint: Seizure/Overdose Time Seen by Provider: 07/04/24 06:03 Source: patient, EMS, RN notes reviewed Mode of arrival: EMS Limitations: altered mental status - History of Present Illness Initial Comments: 19-year-old male presents emergency department with chief complaint of possible seizure. Patient was found down and is now patient states that he was wandering around because he was bored. Patient states that he does have a history of methamphetamine abuse his recent hospitalization for acute psychosis and methamphetamine abuse to psych floor. Patient denies being suicidal homicidal. Patient noted to have bite alvarez on his tongue. Patient states he does not remember this event. Patient denies any chest pain headache, neck pain or any extremity injuries. - Related Data Home Medications Medication Instructions Recorded Confirmed Dextroamphetamine/Amphetamine 20 mg PO DAILY 07/04/24 07/04/24 [Adderall Xr 20 mg Capsule] Previous Rx's Medication Instructions Recorded Nicotine 14Mg/24Hr Patch [Habitrol] 1 patch TRANSDERM DAILY 14 Days 06/14/24 #14 patch Paliperidone [Invega] 3 mg PO HS 30 Days #30 tab 06/14/24 buPROPion XL [Wellbutrin XL] 300 mg PO DAILY 30 Days #30 tab 06/14/24 Allergies Allergy/AdvReac Type Severity Reaction Status Date / Time No Known Allergies Allergy Verified 07/04/24 10:58 Review of Systems ROS Statement: Those systems with pertinent positive or pertinent negative responses have been documented in the HPI. ROS Other: All systems not noted in ROS Statement are negative. Past Medical History Past Medical History: No Reported History History of Any Multi-Drug Resistant Organisms: None Reported Past Surgical History: No Surgical Hx Reported Past Anesthesia/Blood Transfusion Reactions: No Reported Reaction Past Psychological History: ADD/ADHD Smoking Status: Current every day smoker Past Alcohol Use History: None Reported, Occasional Past Drug Use History: Cocaine, Heroin, Marijuana, Methamphetamine, Opiates, Prescription Drug Abuse - Past Family History Father Family Medical History: Unable to Obtain General Exam Limitations: no limitations General appearance: alert, in no apparent distress Head exam: Present: atraumatic, normocephalic, normal inspection Eye exam: Present: normal appearance, PERRL, EOMI. Absent: scleral icterus, conjunctival injection, periorbital swelling ENT exam: Present: mucous membranes moist. Absent: normal exam, normal oropharynx (Alvarez noted on the tongue) Respiratory exam: Present: normal lung sounds bilaterally. Absent: respiratory distress, wheezes, rales, rhonchi, stridor Cardiovascular Exam: Present: normal rhythm, tachycardia, normal heart sounds. Absent: systolic murmur, diastolic murmur, rubs, gallop, clicks GI/Abdominal exam: Present: soft, normal bowel sounds. Absent: distended, tenderness, guarding, rebound, rigid Back exam: Present: normal inspection, full ROM Neurological exam: Present: alert, oriented X3, CN II-XII intact, reflexes normal. Absent: motor sensory deficit Skin exam: Present: warm, dry, intact, normal color. Absent: rash Course Vital Signs 07/04/24 07/04/24 07/04/24 05:56 06:01 06:16 Temperature 98.9 F Pulse Rate 129 H 126 H Respiratory 18 Rate Blood Pressure 174/116 158/124 O2 Sat by Pulse 99 Oximetry 07/04/24 07/04/24 07/04/24 08:00 09:00 09:41 Temperature 98 F Pulse Rate 118 H 133 H 125 H Respiratory 20 20 20 Rate Blood Pressure 145/90 160/89 136/71 O2 Sat by Pulse 98 98 94 L Oximetry 07/04/24 07/04/24 07/04/24 10:00 10:59 13:00 Temperature Pulse Rate 118 H 123 H 75 Respiratory 20 16 20 Rate Blood Pressure 111/62 128/76 119/83 O2 Sat by Pulse 94 L 96 98 Oximetry 07/04/24 13:51 Temperature Pulse Rate 123 H Respiratory 20 Rate Blood Pressure 156/91 O2 Sat by Pulse 97 Oximetry Procedures - Restraint - Face to Face Restraint Occurrence 1 Patient's Immediate Situation: Endangers self safety, Endangers others' safety, Endangers staff safety Patient's Reaction to the Intervention: Uncooperative, Aggressive, Restless Patient's Medical & Behavioral Condition: Awake, Alert, Agitated Need to Continue or Terminate Restraint or Seclusion: Continue Face to Face Eval of Restraint Date: 07/04/24 Face to Face Eval of Restraint Time: 13:40 Medical Decision Making - Medical Decision Making Was pt. sent in by a medical professional or institution (, PA, IN ROOM DINING SERVER, urgent care, hospital, or half-way...) When possible be specific @ -No Did you speak to anyone other than the patient for history (EMS, parent, family, police, friend...)? What history was obtained from this source @ -No Did you review nursing and triage notes (agree or disagree)? Why? @ -I reviewed and agree with nursing and triage notes Were old charts reviewed (outside hosp., previous admission, EMS record, old EK G, old radiological studies, urgent care reports/EKG's, half-way records)? Report findings @ -No old charts were reviewed Differential Diagnosis (chest pain, altered mental status, abdominal pain women, abdominal pain men, vaginal bleeding, weakness, fever, dyspnea, syncope, headache, dizziness, GI bleed, back pain, seizure, CVA, palpatations, mental health, musculoskeletal)? @ -Differential Seizure: Recurrent seizure disorder, febrile seizure, alcohol withdrawal, stimulants, meningitis, encephalitis, intercranial hemorrhage, intracranial tumor, stroke, eclampsia, thyrotoxicosis, hypocalcemia, hyponatremia, hypernatremia, hypomagnesemia, psychogenic, this is not meant to be an all-inclusive list. EKG interpreted by me (3pts min.). @ -As above X-rays interpreted by me (1pt min.). @ -None done CT interpreted by me (1pt min.). @ -[CT brain showing no acute intracranial hemorrhage, mass effect or acute abnormality U/S interpreted by me (1pt. min.). @ -None done What testing was considered but not performed or refused? (CT, X-rays, U/S, labs)? Why? @ -None What meds were considered but not given or refused? Why? @ -None Did you discuss the management of the patient with other professionals (professionals i.e. , PA, IN ROOM DINING SERVER, lab, RT, psych nurse, socially responsible investment adviser, presser and blocker knitted goods, teacher, front desk officer, case management rn)? Give summary @ -Dr. Valdez for admission Was smoking cessation discussed for >3mins.? @ -No Was critical care preformed (if so, how long)? @ -No Were there social determinants of health that impacted care today? How? (Homelessness, low income, unemployed, alcoholism, drug addiction, transportation, low edu. Level, literacy, decrease access to med. care, group home, rehab)? @ -No Was there de-escalation of care discussed even if they declined (Discuss DNR or withdrawal of care, Hospice)? DNR status @ -No What co-morbidities impacted this encounter? (DM, HTN, Smoking, COPD, CAD, Cancer, CVA, ARF, Chemo, Hep., AIDS, mental health diagnosis, sleep apnea, morbid obesity)? @ -Drug use Was patient admitted / discharged? Hospital course, mention meds given and route, prescriptions, significant lab abnormalities, going to OR and other pertinent info. @ -Admitted patient presented for mental status. Patient may have had a seizure did have recurrent seizure in the emergency department. Patient was given advancer and Keppra. Occasional consult to neurology for further evaluation including possible MRI, EEG. Undiagnosed new problem with uncertain prognosis? @ -No Drug Therapy requiring intensive monitoring for toxicity (Heparin, Nitro, Insulin, Cardizem)? @ -No Were any procedures done? @ -No Diagnosis/symptom? @ -New onset seizure Acute, or Chronic, or Acute on Chronic? @ -Acute Uncomplicated (without systemic symptoms) or Complicated (systemic symptoms)? @ -Comp Side effects of treatment? @ -No Exacerbation, Progression, or Severe Exacerbation? @ -No Poses a threat to life or bodily function? How? (Chest pain, [place], NH, pneumonia, PE, COPD, DKA, ARF, appy, cholecystitis, CVA, Diverticulitis, Homicidal, Suicidal, threat to staff... and all critical care pts) @ -No - Lab Data Result diagrams: 07/04/24 06:15 07/04/24 06:15 Lab Results 07/04/24 07/04/24 07/04/24 Range/Units 06:15 06:15 09:23 WBC 8.2 (4.0-11.0) k/uL RBC 4.97 (4.30-5.90) m/uL Hgb 14.9 (13.0-17.5) gm/dL Hct 45.5 (39.0-53.0) % MCV 91.6 (80.0-100.0) fL MCH 29.9 (25.0-35.0) pg MCHC 32.7 (31.0-37.0) g/dL RDW 13.0 (11.5-15.5) % Plt Count 272 (150-450) k/uL MPV 7.4 Neutrophils % 77 % Lymphocytes % 14 % Monocytes % 5 % Eosinophils % 2 % Basophils % 1 % Neutrophils # 6.3 (1.3-7.7) k/uL Lymphocytes # 1.2 (1.0-4.8) k/uL Monocytes # 0.4 (0-1.0) k/uL Eosinophils # 0.1 (0-0.7) k/uL Basophils # 0.1 (0-0.2) k/uL Sodium 140 (137-145) mmol/L Potassium 3.7 (3.5-5.1) mmol/L Chloride 103 (98-107) mmol/L Carbon Dioxide 18 L (22-30) mmol/L Anion Gap 19 mmol/L BUN 9 (9-20) mg/dL Creatinine 0.83 (0.66-1.25) mg/dL Est GFR (CKD-EPI)AfAm >90 (>60 ml/min/1.73 sqM) Est GFR (CKD-EPI)NonAf >90 (>60 ml/min/1.73 sqM) Glucose 127 H (74-99) mg/dL Calcium 9.7 (8.4-10.2) mg/dL Magnesium 1.9 (1.6-2.3) mg/dL Total Bilirubin 0.6 (0.2-1.3) mg/dL AST 25 (17-59) U/L ALT 18 (4-49) U/L Alkaline Phosphatase 88 (38-126) U/L Total Protein 7.9 (6.3-8.2) g/dL Albumin 4.9 (3.5-5.0) g/dL Salicylates <1.0 mg/dL Urine Opiates Screen Not Detected (NotDetected) Ur Oxycodone Screen Not Detected (NotDetected) Urine Methadone Screen Not Detected (NotDetected) Acetaminophen <10.0 ug/mL Ur Barbiturates Screen Not Detected (NotDetected) U Tricyclic Antidepress Not Detected (NotDetected) Ur Phencyclidine Scrn Not Detected (NotDetected) Ur Amphetamines Screen Not Detected (NotDetected) U Methamphetamines Scrn Not Detected (NotDetected) U Benzodiazepines Scrn Not Detected (NotDetected) Urine Cocaine Screen Not Detected (NotDetected) U Marijuana (THC) Screen Detected H (NotDetected) Serum Alcohol <10 mg/dL - EKG Data -: EKG Interpreted by Me EKG Comments: EKG performed at 6: 01 tachycardia with a rate of 128 QRS 119 QT/QTc 317/393 Disposition Clinical Impression: New onset seizure Disposition: ADMITTED IP TO THIS HOSP Time of Disposition: 10:37
[2024-07-04] MEDS: SODIUM CHLORIDE 0.9% 1,000 ML IV ONE (08:25)
[2024-07-04] MEDS: LORazepam 2 MG/ML INJ IV STA (09:30)
[2024-07-04 10:21] LABS: Amphetamine Screen,Urine Not Detected (NotDetected); Barbiturate Screen,Urine Not Detected (NotDetected); Benzodiazepines Screen,Urine Not Detected (NotDetected); Cocaine Screen,Urine Not Detected (NotDetected); Methadone Screen, Urine Not Detected (NotDetected); Opiate Screen,Urine Not Detected (NotDetected); Oxycodone Screen, Urine Not Detected (NotDetected); Phencyclidine Screen,Urine Not Detected (NotDetected); Tricyclic Antidepressant,Urine Not Detected (NotDetected); Urn Cannabinoid Scrn Detected (NotDetected)
[2024-07-04] MEDS ORDERED: ONDANSETRON 4 MG/2 ML VIAL IVP PRN (10:38)
[2024-07-04] MEDS ORDERED: NALOXONE 0.4 MG/ML 1 ML VIAL IV PRN (10:38)
[2024-07-04] MEDS: SODIUM CHLORIDE 0.9% 1,000 ML IV SCH (10:44)
[2024-07-04] MEDS: levETIRAcetam IV 500 MG/5 ML VIAL IVP STA (11:42)
[2024-07-04] MEDS: PANTOPRAZOLE 40 MG/10 ML VIAL IVP SCH (12:13)
[2024-07-04] MEDS: VALPROATE SODIUM 1,000 MG in SODIUM CHLORIDE 0.9% 100 ML IVPB STA (12:14)
--- NOTE | 2024-07-04 13:32 | P.CN ---
Psychiatric Consult - . Consult date: 07/04/24 Consult:: 07/04/24 13:24 Patient was attempted to be seen today by chart writer for a consultation regarding patient's depression psychosis and drug abuse. Patient's urine drug screen is positive for THC, chart writer read/reviewed EMR and notes regarding this visit and workup. Patient apparently was found laying down has a history of methamphetamine use 2 recent inpatient psychiatric hospitalizations, last discharged on 06/14 from the psychiatric unit. Patient has a CAT scan which was negative. Sr Community Manager spoke with patient's nurse at the bedside who stated that patient had seizures before coming it and also in the ER. patient was also found by police with a bottle of cough syrup. Has been giving Depakote, seen by neurology, patient was taken to have EEG completed and not available for psychiatric assessment at this time. patient apparently was drowsy. Will continue to follow along and attempt to see patient tomorrow for full psychiatric evaluations and recommendations. please avoid Keppra (due to increased risk of psychiatric s/e) and also hold off on wellbutrin to lowering the seizure threshold. agree with continuing BZD to stop seizures and also depakote for AED. Thank you
--- NOTE | 2024-07-04 14:04 | P.HPIM ---
History of Present Illness H&P Date: 07/04/24 Chief Complaint: Depression, psychosis, drug abuse This is a 19-year-old gentleman, last discharged on 06/14 from inpatient psychiatric unit, with past medical history of polysubstance abuse-cocaine, heroin, marijuana, methamphetamine, opiates, prescription drug abuse, nicotine dependence, discovered facedown in the snow with a empty bottle of cough syrup, by police. Apparently patient was having seizures outpatient and was witnessed inpatient with a 2-minute seizure in the ER. Evaluated by neurology, valproic acid ordered. EEG ordered. seizure precautions maintained. Patient currently drowsy, recently received Ativan, denies homicidal or suicidal.Brain CT reported no acute intracranial process. Review of Systems Review of systems unable to obtain, as patient recently received Ativan, drowsy Past Medical History Past Medical History: No Reported History History of Any Multi-Drug Resistant Organisms: None Reported Past Surgical History: No Surgical Hx Reported Past Anesthesia/Blood Transfusion Reactions: No Reported Reaction Past Psychological History: ADD/ADHD Smoking Status: Current every day smoker Past Alcohol Use History: None Reported, Occasional Past Drug Use History: Cocaine, Heroin, Marijuana, Methamphetamine, Opiates, Prescription Drug Abuse - Past Family History Father Family Medical History: Unable to Obtain Medications and Allergies Home Medications Medication Instructions Recorded Confirmed Type Nicotine 14Mg/24Hr Patch [Habitrol] 1 patch TRANSDERM DAILY 14 Days 06/14/24 07/04/24 Rx #14 patch Paliperidone [Invega] 3 mg PO HS 30 Days #30 tab 06/14/24 07/04/24 Rx buPROPion XL [Wellbutrin XL] 300 mg PO DAILY 30 Days #30 tab 06/14/24 07/04/24 Rx Dextroamphetamine/Amphetamine 20 mg PO DAILY 07/04/24 07/04/24 History [Adderall Xr 20 mg Capsule] Allergies Allergy/AdvReac Type Severity Reaction Status Date / Time No Known Allergies Allergy Verified 07/04/24 10:58 Physical Exam Vitals: Vital Signs Temp Pulse Resp BP Pulse Ox 07/04/24 13:00 75 20 119/83 98 07/04/24 10:59 123 H 16 128/76 96 07/04/24 10:00 118 H 20 111/62 94 L 07/04/24 09:41 125 H 20 136/71 94 L 07/04/24 09:00 133 H 20 160/89 98 07/04/24 08:00 98 F 118 H 20 145/90 98 07/04/24 06:16 126 H 18 158/124 99 07/04/24 06:01 129 H 07/04/24 05:56 98.9 F 174/116 Intake and Output 07/03/24 07/04/24 07/04/24 22:59 06:59 14:59 Other: Weight 95.708 kg GENERAL: Drowsy, thin 19-year-old male, lying on stretcher,no apparent distress. HEAD: Atraumatic, normocephalic. EYES: Pupils equal round and reactive to light, extraocular movements intact, sclera anicteric, conjunctiva are normal. ENT:oropharynx clear without exudates. Moist mucous membranes. NECK: supple without lymphadenopathy or JVD, no thyromegaly LUNGS: Unlabored, equal air entry, breath sounds clear to auscultation bilaterally and equal. No wheezes rales or rhonchi. HEART: Regular rate and rhythm without murmurs, rubs or gallops.S1S2 Normal ABDOMEN: Soft, nondistended, nontender, normoactive bowel sounds. No guarding, no rebound. No masses appreciated. EXTREMITIES: no pitting or edema. No clubbing or cyanosis. NEUROLOGICAL: Unable to evaluate, recently sedated with Ativan PSYCH: Unable to evaluate SKIN: Warm, Dry, normal turgor, no rashes noted. Results CBC & Chem 7: 07/04/24 06:15 07/04/24 06:15 Labs: Abnormal Lab Results - Last 24 Hours (Table) 07/04/24 07/04/24 Range/Units 06:15 09:23 Carbon Dioxide 18 L (22-30) mmol/L Glucose 127 H (74-99) mg/dL U Marijuana (THC) Screen Detected H (NotDetected) Assessment and Plan Assessment: New onset seizures, found with a empty bottle cough start facedown in the snow in a patient with history of polysubstance abuse including methamphetamines, cocaine. Patient on Wellbutrin, which lowers seizure threshold, in addition to his polysubstance abuse. History of psychosis, unspecified, suicide attempts. noncompliant with psychiatric medication regimen Methamphetamine use disorder Polysubstance abuse including alcohol, benzos, opiates, cocaine, methamphetamine, nicotine, cannabis. Toxicology reporting marijuana. ADHD Hyperlipidemia Hypercholesterolemia Plan: Continue on current medication resume ,monitoring and symptomatic treatment. IV fluid hydration, seizure precautions. Telemetry monitoring. psychiatry consulted. Neurology consult in place, Depakote initiated. Prognosis guarded, given multiple complex medical issues. The impression and plan of care has been dictated as directed. : I performed a history and examination of this patient, discussed the same with the dictator. I agree with the dictator's note ,documented as a scribe. Any additional findings or plans will be noted.
[2024-07-04] MEDS: LORazepam 2 MG/ML INJ IV PRN (15:34)
[2024-07-04] MEDS: HALOPERIDOL LACTATE 5 MG/ML 1 ML VIAL IVP PRN (16:30)
--- NOTE | 2024-07-04 17:35 | P.CNNES ---
History of Present Illness Consult date: 07/04/24 Requesting physician: Benigno Hamm Reason for Consult: seizure new onset History of Present Illness: This is a 19-year-old gentleman with history of psychosis, meth use, prior suicidal attempts who presented emergency department because of both seizure- like activity. Some of the history is obtained from nurse as well as the patient grandmother. According to the nurse seems the patient was found down on the floor facedown with an empty cough syrup with possible seizure-like activity. He had a tongue bite. According to the patient's grandmother he was at his other grandmother's house and it seems that he went outside for possible to smoke a cigarette and unsure what transpired afterward. Per the patient and grandmother patient does not have any history of seizures but seems that he had a recent psychiatric issue and he had to recent suicidal attempts. He had to be hospitalized in [facility] [place]. It seems that he had recent hospitalization for acute psychosis methamphetamine abuse. The patient is on Wellbutrin. He thinks his last meth use after multiple question was a couple days ago. He also did ac knowledge that he uses cocaine in the last was also a couple days ago or more. His mother overdosed from substance use. As well as the father uses substance use as well. There are some family history of seizure his grandmother and uncle. Some of the workup during this hospital visit: CBC with differential is unremarkable next I reviewed the chemistry panel in the serum glucose of 127 carbadox is 18 the rest is unremarkable Urine drug screen is positive for marijuana otherwise the rest is on detected in the serum alcohol is less than 10. CT of the head is reported as no acute intracranial process. Reviewed the CT and agree with the report. Review of Systems Limited. Past Medical History Past Medical History: No Reported History History of Any Multi-Drug Resistant Organisms: None Reported Past Surgical History: No Surgical Hx Reported Past Anesthesia/Blood Transfusion Reactions: No Reported Reaction Past Psychological History: ADD/ADHD Smoking Status: Current every day smoker Past Alcohol Use History: None Reported, Occasional Past Drug Use History: Cocaine, Heroin, Marijuana, Methamphetamine, Opiates, Prescription Drug Abuse - Past Family History Father Family Medical History: Unable to Obtain Medications and Allergies Home Medications Medication Instructions Recorded Confirmed Type Nicotine 14Mg/24Hr Patch [Habitrol] 1 patch TRANSDERM DAILY 14 Days 06/14/24 07/04/24 Rx #14 patch Paliperidone [Invega] 3 mg PO HS 30 Days #30 tab 06/14/24 07/04/24 Rx buPROPion XL [Wellbutrin XL] 300 mg PO DAILY 30 Days #30 tab 06/14/24 07/04/24 Rx Dextroamphetamine/Amphetamine 20 mg PO DAILY 07/04/24 07/04/24 History [Adderall Xr 20 mg Capsule] Allergies Allergy/AdvReac Type Severity Reaction Status Date / Time No Known Allergies Allergy Verified 07/04/24 10:58 Physical Examination - Vital Signs Vital Signs: Vital Signs Temp Pulse Resp BP Pulse Ox 07/04/24 15:55 118 H 20 135/86 98 07/04/24 15:00 120 H 20 135/77 98 07/04/24 14:00 120 H 20 135/70 98 07/04/24 13:51 123 H 20 156/91 97 07/04/24 13:00 75 20 119/83 98 07/04/24 10:59 123 H 16 128/76 96 07/04/24 10:00 118 H 20 111/62 94 L 07/04/24 09:41 125 H 20 136/71 94 L 07/04/24 09:00 133 H 20 160/89 98 07/04/24 08:00 98 F 118 H 20 145/90 98 07/04/24 06:16 126 H 18 158/124 99 07/04/24 06:01 129 H 07/04/24 05:56 98.9 F 174/116 Intake and Output 07/04/24 07/04/24 07/04/24 06:59 14:59 22:59 Other: Weight 95.708 kg General: Lying in bed and does not appear in acute distress. Neuro: Very Limited. Been 1 mg Ativan in the ED Patient moderate to severe drowsy and he is awake both to voice. He is oriented to self. He follows very few simple commands after multiple attempts. Language is limited No facial weakness. Patient was able to stick out his tongue and had left tongue bite. Motor the strength is hard to assess individual muscle strength but he was able to lift up the arms and leg briefly. Results - Laboratory Findings CBC and BMP: 07/04/24 06:15 07/04/24 06:15 Abnormal Lab Findings: Abnormal Labs 07/04/24 07/04/24 06:15 09:23 Carbon Dioxide 18 L Glucose 127 H U Marijuana (THC) Screen Detected H Assessment and Plan Assessment: Is a 19-year-old gentleman with history of polysubstance use uses meth and today he states that he uses cocaine and last was couple days ago but unsure found down on the floor by the police early in the morning down with possible seizure- like activity and he had tongue bite. Patient had recent psych hospitalization for his psychosis. According to his grandmother he had 2 suicidal attempts and was placed recently on Wellbutrin. Today Also found with empty bottle of cough syrup next to him when found by officers. New onset seizure possibly provoked due to multifactorial: Wellbutrin lowers this seizure threshold as well as substance use. Substance use and he does have known history of meth and he notified me and his grandmother was at bedside that he uses cocaine Tobacco use Underlying history of psychosis with suicidal attempts Plan: I ordered Depakote 1000 mg once. ED team attempted to give the patient Keppra but I discontinued since Keppra can cause increased mood and behavioral issue and recommend avoiding Keppra. I started the patient on Depakote 500 mg twice daily since it helps with mood as well as antiseizure's I ordered a routine EEG Seizure precautions seizure pads Patient is on Ativan as needed Please avoid Wellbutrin since it can lower the seizure threshold Psychiatry is consulted Will defer the rest of the medical management to primary and other specialist The plan discussed with patient's grandmother who is at bedside as well as his nurse. Thank you for the consultation. ADDENDUM: Patient was combative during the EEG and could not be obtained. Will attempt again tomorrow is more stable. Time with Patient: Greater than 30
[2024-07-04] MEDS: VALPROATE SODIUM 500 MG in SODIUM CHLORIDE 0.9% 100 ML IVPB SCH (20:25)
--- NOTE | 2024-07-05 11:16 | P.PN ---
Subjective Progress Note Date: 07/05/24 H&P Date: 07/04/24 Chief Complaint: Depression, psychosis, drug abuse This is a 19-year-old gentleman, last discharged on 06/14 from inpatient psychiatric unit, with past medical history of polysubstance abuse-cocaine, heroin, marijuana, methamphetamine, opiates, prescription drug abuse, nicotine dependence, discovered facedown in the snow with a empty bottle of cough syrup, by police. Apparently patient was having seizures outpatient and was witnessed inpatient with a 2-minute seizure in the ER. Evaluated by neurology, valproic acid ordered. EEG ordered. seizure precautions maintained. Patient currently drowsy, recently received Ativan, denies homicidal or suicidal.Brain CT reported no acute intracranial process. 07/05/2024 sensorium significantly improved. Completed EEG this morning, results pending. Maintained on Depakote .seizure precautions maintained. No further seizure activity reported throughout the night or this morning. Denies suicidal or homicidal. Denies consuming cough syrup, responded that he does not know how he ended up in his possession. Did not eat breakfast but informed staff he is not a breakfast eater. Objective - Vital Signs Vital signs: Vital Signs Temp 98.0 F 07/05/24 07:53 Pulse 84 07/05/24 08:00 Resp 16 07/05/24 07:53 BP 114/66 07/05/24 07:53 Pulse Ox 96 07/05/24 07:53 FiO2 Intake & Output 07/04/24 07/05/24 07/05/24 18:59 06:59 18:59 Weight 95.708 kg Other: Voiding Method Toilet Toilet Urinal Urinal # Voids 1 1 - Exam GENERAL: Alert and oriented x 3, sitting up in bed, no acute distress. Withdrawn, cooperative. HEAD: Atraumatic, normocephalic. EYES: Pupils equal round and reactive to light, extraocular movements intact, sclera anicteric, conjunctiva are normal. ENT:oropharynx clear without exudates. Moist mucous membranes. NECK: supple, no JVD LUNGS: Unlabored, equal air entry, CTA. HEART: Regular rate and rhythm without murmurs, rubs or gallops.S1S2 Normal ABDOMEN: Soft, nondistended, nontender, normoactive bowel sounds. No guarding, no rigidity. EXTREMITIES: no edema,No clubbing or cyanosis. No calf tenderness. NEUROLOGICAL: Cranial nerves II through XII grossly intact. SKIN: Warm, Dry, normal turgor, no rashes noted. - Labs CBC & Chem 7: 07/04/24 06:15 07/04/24 06:15 Assessment and Plan Assessment: New onset seizures, found with a empty bottle cough syrup, facedown in the snow in a patient with history of polysubstance abuse including methamphetamines, cocaine. Patient on Wellbutrin, which lowers seizure threshold, in addition to his polysubstance abuse. History of psychosis, unspecified, suicide attempts. noncompliant with psychiatric medication regimen Methamphetamine use disorder Polysubstance abuse including alcohol, benzos, opiates, cocaine, methamphetamine, nicotine, cannabis. Toxicology reporting marijuana. ADHD Hyperlipidemia Hypercholesterolemia Plan: Continue on current medication resume ,monitoring and symptomatic treatment. Anticonvulsants as per neurology . EEG results pending .maintain IV fluid hydration, seizure precautions. Continue telemetry monitoring. Reevaluation by psychiatry with further recommendations pending. Prognosis guarded, given multiple complex medical issues. The impression and plan of care has been dictated as directed. : I performed a history and examination of this patient, discussed the same with the dictator. I agree with the dictator's note ,documented as a scribe. Any additional findings or plans will be noted.
--- NOTE | 2024-07-05 13:09 | P.PN ---
Subjective Progress Note Date: 07/05/24 I am following up with the patient and he is accompanied by his 2 grandmothers. Seems the patient is doing drastically better. No further seizure-like activity. He did confirm that he does have history of cocaine use as well as meth but he does not recall having cough syrup medication. As stated in my HPI yesterday was found by the officers when they found him but he declines using cough syrup. According to his grandmother since he was a kid he is having tremors as a child but denies any history of seizure-like activity. Objective - Vital Signs Vital signs: Vital Signs Temp 98.0 F 07/05/24 07:53 Pulse 84 07/05/24 08:00 Resp 16 07/05/24 07:53 BP 114/66 07/05/24 07:53 Pulse Ox 96 07/05/24 07:53 FiO2 Intake & Output 07/04/24 07/05/24 07/05/24 18:59 06:59 18:59 Output Total 550 Balance -550 Weight 95.708 kg Output: Urine 550 Other: Voiding Method Toilet Toilet Urinal Urinal # Voids 1 1 1 - Exam General: Lying in bed and is not in acute distress. Neuro: The patient was sleeping upon seeing him but he is awake able to voice. He is oriented to self place and time. He is following simple commands. The pupils are round about 4 mm and reactive to light. Visual dolan are full to confrontation. Extraocular movements intact no nystagmus. No facial weakness. No dysarthria Motor: Strength seems 5 out of 5 throughout. Normal tone and bulk Some of the workup during this hospital visit: CBC with differential is unremarkable next TSH: 0.567 Urine drug screen is positive for marijuana otherwise the rest is on detected in the serum alcohol is less than 10. CT of the head is reported as no acute intracranial process. Reviewed the CT and agree with the report. - Labs CBC & Chem 7: 07/04/24 06:15 07/04/24 06:15 Assessment and Plan Assessment: Is a 19-year-old gentleman with history of polysubstance use uses meth and today he states that he uses cocaine and last was couple days ago but unsure found down on the floor by the police early in the morning down with possible seizure- like activity and he had tongue bite. Patient had recent psych hospitalization for his psychosis. According to his grandmother he had 2 suicidal attempts and was placed recently on Wellbutrin. Today Also found with empty bottle of cough syrup next to him when found by officers. New onset seizure possibly provoked due to multifactorial: Wellbutrin lowers this seizure threshold as well as substance use/withdrawal--currently drastica lly better. Substance use and he does have known history of meth and he notified me and his grandmother was at bedside that he uses cocaine Tobacco use Underlying history of psychosis with suicidal attempts Plan: Continue Depakote 500 mg twice daily since it helps with mood as well as antiseizure's Please avoid Keppra since it can cause increased mood and behavioral issue and recommend avoiding Keppra. Will try to pursue with routine EEG (yesterday he was non-compliant). Pending MRI Brain seizure protocol Seizure precautions seizure pads Patient is on Ativan as needed Please avoid Wellbutrin since it can lower the seizure threshold Psychiatry is consulted Patient was counseled on cessation of drug use. Per the [place] DMV because of the seizures, to avoid driving for 6 months until seizure-free, avoid heights, avoid swimming assisted or using heavy missionary. Recommend the patient to follow-up with a neurologist as an outpatient within 2 weeks. Will defer the rest of the medical management to primary and other specialist The plan discussed with patient's grandmother who is at bedside as well as his nurse. Dr. Sellers will resume neurology service tomorrow A.M. Time with Patient: Less than 30
--- NOTE | 2024-07-05 13:33 | P.CN ---
Psychiatric Consult - . Consult date: 07/05/24 Consult:: 07/05/24 13:01 IDENTIFYING DATA: Patient is a 19-year-old male. Lives with his grandmas house. Single, no children. Unemployed. HPI: Patient presented to the hospital on 07/04. Patient's urine drug screen is positive for THC. He has a history of recent psychiatric admissions for psychosis and substance abuse including methamphetamine and cannabis. Patient apparently was found down, brought in for evaluation of a possible seizure. Patient had a CAT scan done of his brain which did not show any acute intracranial changes or hemorrhage. Patient was last discharged from the mental health unit on 06/14. [employer] [employer] attempted to see patient yesterday however patient was off to have EEG completed. Patient shortly after became agitated combative, a Mr. Moeller was called, patient was given as needed medications for agitation. He was evaluated by neurology and placed on Depakote with Ativan as needed for seizures. Currently awaiting EEG results. Patient was seen laying in bed today agreeable to speak to senior mortgage underwriter. His grandmother was at his side helping him. She was excused from the room. Patient appears to be fairly evasive guarded. Claims that he "blacked out" for the whole day before coming into the hospital. States that he does not know how he supposedly had a bottle of cough syrup with him. He seems to be fairly nonchalant about the incidents that occurred. Claims that he is doing better now and feels "chill". Denies any stressors at home. States that he is living with his grandmother and things are going well. He claims that he is unemployed trying to find a job however does not have his GED. Denying any paranoia at this time. He claims that he does not have any issues with substance use and is denying any substance use at this time. Denies any depression or anxiety. Not endorsing any psychotic symptoms or manic symptoms. Patient denies any suicidal or homicidal ideations intent or plan. At this time patient denies any auditory or visual hallucinations. Patient has a history of using methamphetamines, cocaine, marijuana, pain killers, benzos, alcohol, cigarettes however his urine drug screen is only positive for marijuana. He is denying any substance use at this time. PAST PSYCHIATRIC HISTORY: Patient states that he has been diagnosed with ADHD and previous episodes of psychosis, polysubstance abuse. Patient been previously on Invega in the past and Wellbutrin. Admits to poor compliance. Patient has been admitted twice in the past the mental health unit. Patient claims that he follows up at [facility]. Patient states he has had 4 attempts at suicide, two by cutting, two by OD PMH:As per ER note ALLERGIES: as per EMR CHEMICAL DEPENDENCY HISTORY: as per HPI FAMILY PSYCHIATRIC/SUBSTANCE USE HISTORY: brother has been admitted psychiatrically twice SOCIAL HISTORY: Patient was born and raised in [place], [place]. Dropped out in high school. Stopped passing school in 5th grade. Single, lives with his ian's house. No children. Unemployed, and denies legal problems. MENTAL STATUS EXAM: General Appearance: Patient appears to be tall, red hair, stated age is alert, evasive at times guarded.. Patient appears to have fair hygiene and grooming. Behavior: Patient is seated without any agitated behavior. Poor eye contact, guarded and evasive. Nonchalant Speech: Patient's speech is fluent and nonpressured. monotone Mood/Affect: Patient reports their mood is "chill", affect is congruent Suicidality/Homicidality: Patient denies having any homicidal ideation intent or plan. Denies any suicidal ideations intent or plan Perceptions: Patient denies any visual hallucinations and denies any auditory hallucinations Though content/process: [There is no evidence of any delusional thought content and thought process guarded and vague especially about his substance use in the situation that occurred leading to hospitalization Memory and concentration: AOX3, grossly intact for the purposes of this session. Can spell "WORLD" backwards Judgment and insight: Poor/impulsive IMPRESSIONS: Delirium, likely secondary to substance use including cough syrup ingestion History of benzodiazepine abuse History of opiate abuse History of cocaine abuse History of methamphetamine abuse Nicotine dependance Cannabis use disorder Plan: -At this time patient DOES NOT meet criteria for inpatient psychiatric admission. -Delirium precautions recommended with patient including - avoiding use of narcotics and [employer] sedatives, limit anticholinergic medications when possible, frequent re-orientation, minimize use of restraints, open window shades during the day and close them at night -Would recommend the following medication changes/additions: Can continue with Depakote, the dose can be switched to p.o. as patient is beginning to tolerate oral medications. This will help with mood stabilization/aggression/seizures. Patient is not demonstrating any significant mood disturbances or psychosis -Continue 1:1 sitter for safety until tomorrow for monitoring given patients history of impulsivity/aggression and possible elopement -fruit or nut farm worker to provide patient with outpatient mental health/psychiatry resources for appropriate follow up upon discharge. please [facility] follow up information for mental health -[employer] [employer] spoke with patient about substance abuse and the harmful effects on medical and mental health, patient verbally understood and agreed. -fruit or nut farm worker to provide patient substance use treatment resources including AA/NA meetings in the community. -fruit or nut farm worker to provide patient with access line number to call for inpatient substance rehab -patient claims that he is not interested in rehab at this time. -Communicated plan to patient's nurse -awaiting results of MRI and EEG today. appreciate neuro recommendations. -Psychiatry will sign off at this time -Please contact with any questions.
--- NOTE | 2024-07-05 13:48 | MR ---
INDICATION: Patient age:Male; 19 years old; Reason for study: seizure; [facility]. COMPARISON: CT brain 07/04/2024. TECHNIQUE: Multi planar, multi sequence imaging was performed through the brain. The patient was then given 10 cc of Gadobutrol intravenously and multi planar, T1 fat-saturation images were obtained. [facility] brain protocol utilized. FINDINGS: Motion degraded exam. The mendoza-white junctions, ventricular system, basal cisterns appear unremarkable. Age-appropriate cer ebral volume. Diffusion-weighted imaging shows no evidence of restricted diffusion to suggest acute/s ubacute infarct. Intracranial arterial flow voids are maintained. Midline structures show no abnormal ity. Region of increased FLAIR signal intensity within the medial aspect of the left temporal lobe in volving the cortex and subcortical white matter. The susceptibility weighted images do not reveal any evidence for micro-hemorrhage. After administration of gadolinium, no abnormal enhancement is seen. The bone marrow signal is within normal limits. The globes are unremarkable. T2 hyperintense left ma xillary sinus 1.8 cm mucous retention cyst. Mild mucosal thickening of the ethmoid sinuses. IMPRESSION: Region of left temporal lobe FLAIR signal hyperintensity likely related to postictal changes. Other e tiologies include encephalitis. Correlate clinically. Consider short-term follow-up MRI. No acute/sub acute infarct. No evidence for abnormal enhancement. [facility], , 07/05/2024 1:46 PM
--- NOTE | 2024-07-05 20:18 | EEG ---
ELECTROENCEPHALOGRAM REPORT CLINICAL HISTORY: This is a 19-year-old gentleman with a new onset seizure-like activity. The video EEG is obtained to evaluate for seizure epileptiform activity. EEG TYPE: This is a routine 21-channel EEG with video using the 10/20 electrode placement system. RELEVANT MEDICATIONS: 1. Depakote. 2. Ativan. DESCRIPTION: Wakefulness is only obtained. During awake state, the background consists of low-to- moderate voltage of 6 to 7 hertz activity that is well modulated and well sustained. There is no focal slowing. There is mild to moderate diffuse myogenic artifact. Interictal and ictal is none. ACTIVATION PROCEDURE: Photic stimulation did not evoke a posterior driving response. There is no abnormality during the photic stimulation. Hyperventilation is not performed. CLINICAL INTERPRETATION: This is an abnormal routine EEG. The background slowing is suggestive of mild encephalopathy. Otherwise, there is no focal slowing, epileptiform discharge, or seizure on the EEG. Clinical correlation is recommended. ZAY / JUAN: [id number] /
[2024-07-06 08:03] VITALS: BP 126/80; PULSE 83; RESP 14; TEMP 98.8
--- NOTE | 2024-07-06 11:05 | P.DS ---
Providers Date of admission: 07/04/24 09:32 Expected date of discharge: 07/06/24 Attending physician: Akash Valdez Consults: 07/04/24 10:38 Consult Physician Urgent Consulting Provider: Jonathan Shin Consult Reason/Comments: Seizure new onset Do you want consulting provider notified?: Yes 07/04/24 11:50 Consult Physician Routine Consulting Provider: Chauncey Gore Consult Reason/Comments: depression, psychosis, drug abuse Do you want consulting provider notified?: Yes Primary care physician: [facility] Course: This is a 19-year-old gentleman, last discharged on 06/14 from inpatient psychiatric unit, with past medical history of polysubstance abuse-cocaine, heroin, marijuana, methamphetamine, opiates, prescription drug abuse, nicotine dependence, discovered facedown in the snow with a empty bottle of cough syrup, by police. Apparently patient was having seizures outpatient and was witnessed inpatient with a 2-minute seizure in the ER. Evaluated by neurology, valproic acid ordered. EEG ordered. seizure precautions maintained. Patient currently drowsy, recently received Ativan, denies homicidal or suicidal.Brain CT reported no acute intracranial process. 07/05/2024 sensorium significantly improved. Completed EEG this morning, results pending. Maintained on Depakote .seizure precautions maintained. No further seizure activity reported throughout the night or this morning. Denies suicidal or homicidal. Denies consuming cough syrup, responded that he does not know how he ended up in his possession. Did not eat breakfast but informed staff he is not a breakfast eater. 07/06/2024: Patient's stable on Depakote, no new seizures. MRI failed to show any significant abnormalities, EEG was slightly abnormal with an encephalopathy picture as opposed to epilepsy. Will be sent home on oral Depakote follow-up with [facility], follow-up in our office, be referred to neurology outpatient. No driving for 6 months Patient Condition at Discharge: Fair Plan - Discharge Summary Discharge Rx Participant: Yes New Discharge Prescriptions: New Divalproex [Depakote] 500 mg PO BID 30 Days #60 tab Continue Paliperidone [Invega] 3 mg PO HS 30 Days #30 tab Dextroamphetamine/Amphetamine [Adderall Xr 20 mg Capsule] 20 mg PO DAILY Nicotine 14Mg/24Hr Patch [Habitrol] 1 patch TRANSDERM DAILY 14 Days #14 patch Discontinued buPROPion XL [Wellbutrin XL] 300 mg PO DAILY 30 Days #30 tab Discharge Medication List Nicotine 14Mg/24Hr Patch [Habitrol] 1 patch TRANSDERM DAILY 14 Days #14 patch 06/14/24 [Rx] Paliperidone [Invega] 3 mg PO HS 30 Days #30 tab 06/14/24 [Rx] Dextroamphetamine/Amphetamine [Adderall Xr 20 mg Capsule] 20 mg PO DAILY 07/04/24 [History] Divalproex [Depakote] 500 mg PO BID 30 Days #60 tab 07/06/24 [Rx] Follow up Appointment(s)/Referral(s): Yuval Mckeon Jr, DO [Primary Care Provider] - 1-2 days Shelbi Laughlin MD [REFERRING] - 1 Week Jonathan Scales MD [STAFF PHYSICIAN] - 1 Week Patient Instructions/Handouts: Seizure/Epilepsy Discharge Instructions & Follow-Up Discharge Disposition: HOME SELF-CARE
== END 2024-07-06 11:44 | disposition home or self-care (01) | DRG 53 ==
LOC: EC 05:55 → 5NMEDONC 09:32
PROVIDERS: ADMIT Family Medicine; ATTEND Family Medicine
PROC: 4A10X4Z Monitoring of Central Nervous Electrical Activity, External Approach (ICD-10-PCS; principal; 2024-07-05)
DX: R56.9 Unspecified convulsions (principal); F15.10 Other stimulant abuse, uncomplicated; F17.210 Nicotine dependence, cigarettes, uncomplicated; F32.A Depression, unspecified; F14.10 Cocaine abuse, uncomplicated; F90.9 Attention-deficit hyperactivity disorder, unspecified type; F12.10 Cannabis abuse, uncomplicated; E78.00 Pure hypercholesterolemia, unspecified; F11.10 Opioid abuse, uncomplicated; Z79.899 Other long term (current) drug therapy; Z91.148 Patient's other noncompliance with medication regimen for other reason; Z91.51 Personal history of suicidal behavior; Z71.51 Drug abuse counseling and surveillance of drug abuser
CPT/HCPCS: 36415; 70450; 70553; 80053; 80143; 80179; 80306; 80320; 83735; 84443; 85025; 93005; 95816; 96361; 96365; 96375; 96376; 99285

== ENCOUNTER 2024-11-11 09:42 | Emergency (ER) | payer OTHER ==
[2024-11-11] MEDS: PROPARACAINE 0.5% OPHTH DROPS 15 ML BTL RIGHT EYE STA (10:03)
[2024-11-11] MEDS: FLUORESCEIN STRIPS 1 MG STRIP RIGHT EYE ONE (10:03)
--- NOTE | 2024-11-11 10:04 | ED ---
General Adult HPI - General Chief complaint: ENT Stated complaint: R eye issue Time Seen by Provider: 11/11/24 09:45 Source: patient, RN notes reviewed Mode of arrival: ambulatory Limitations: no limitations - History of Present Illness Initial comments: 19 year old male presents to the ED for evaluation of R eye pain. Patient morgan has FB in eye sensation. He reports the symptoms started last night. He denies any recent fever or chills. He endorses working with metal at work and denies wearing safety glasses. He does not wear contact lenses. Pt does not recall when his last tetanus shot was and needs one today - Related Data Home Medications Medication Instructions Recorded Confirmed Dextroamphetamine/Amphetamine 20 mg PO DAILY 07/04/24 07/04/24 [Adderall Xr 20 mg Capsule] Previous Rx's Medication Instructions Recorded Nicotine 14Mg/24Hr Patch [Habitrol] 1 patch TRANSDERM DAILY 14 Days 06/14/24 #14 patch Paliperidone [Invega] 3 mg PO HS 30 Days #30 tab 06/14/24 Divalproex [Depakote] 500 mg PO BID 30 Days #60 tab 07/06/24 Allergies Allergy/AdvReac Type Severity Reaction Status Date / Time No Known Allergies Allergy Verified 11/11/24 09:45 Review of Systems ROS Statement: Those systems with pertinent positive or pertinent negative responses have been documented in the HPI. ROS Other: All systems not noted in ROS Statement are negative. Past Medical History Past Medical History: No Reported History History of Any Multi-Drug Resistant Organisms: None Reported Past Surgical History: No Surgical Hx Reported Past Anesthesia/Blood Transfusion Reactions: No Reported Reaction Past Psychological History: ADD/ADHD Smoking Status: Current every day smoker Past Alcohol Use History: None Reported, Occasional Past Drug Use History: Cocaine, Heroin, Marijuana, Methamphetamine, Opiates, Prescription Drug Abuse - Past Family History Father Family Medical History: Unable to Obtain General Exam Limitations: no limitations General appearance: alert, in no apparent distress Head exam: Present: atraumatic, normocephalic, normal inspection Eye exam: Present: PERRL, EOMI, conjunctival injection, other (Foreign body noted in the central corneal region, there is uptake with fluorescein and patient did have relief with Precaine drops). Absent: normal appearance, scleral icterus, periorbital swelling ENT exam: Present: normal exam, mucous membranes moist Course Vital Signs 11/11/24 11/11/24 09:43 10:25 Temperature 97.5 F L 98.4 F Pulse Rate 61 72 Respiratory 17 18 Rate Blood Pressure 137/85 138/80 O2 Sat by Pulse 98 99 Oximetry Procedures - Forgein Body Removal Eye Site: Right Location in eye(s): 12 o'clock position Anesthetic Used: Proparacaine Eye Exam Technique: [place] Lamp, Fluorescein Foreign Body Suspected: Metal Forgein Body Removal Technique: Cotton Swab, [place] Remaining Debris: No Patient Tolerated: no complications Medical Decision Making - Medical Decision Making Was pt. sent in by a medical professional or institution (, [facility], [employer], urgent care, hospital, or assisted...) When possible be specific @ -No Did you speak to anyone other than the patient for history (EMS, parent, family, police, friend...)? What history was obtained from this source @ -No Did you review nursing and triage notes (agree or disagree)? Why? @ -I reviewed and agree with nursing and triage notes Were old charts reviewed (outside hosp., previous admission, EMS record, old EKG, old radiological studies, urgent care reports/EKG's, assisted records)? Report findings @ -No old charts were reviewed Differential Diagnosis (chest pain, altered mental status, abdominal pain women, abdominal pain men, vaginal bleeding, weakness, fever, dyspnea, syncope, headache, dizziness, GI bleed, back pain, seizure, CVA, palpatations, mental health, musculoskeletal)? @ -Corneal abrasion, corneal foreign body, conjunctivitis, this list is not all inclusive EKG interpreted by me (3pts min.). @ -None X-rays interpreted by me (1pt min.). @ -None done CT interpreted by me (1pt min.). @ -None done U/S interpreted by me (1pt. min.). @ -None done What testing was considered but not performed or refused? (CT, X-rays, U/S, labs)? Why? @ -None What meds were considered but not given or refused? Why? @ -None Did you discuss the management of the patient with other professionals (professionals i.e. [employer] Magallanes, [employer], lab, RT, psych nurse, social insurance analyst, custom decorating consultant, teacher, dental officer, director case)? Give summary @ -No Was smoking cessation discussed for >3mins.? @ -No Was critical care preformed (if so, how long)? @ -No Were there social determinants of health that impacted care today? How? (Homelessness, low income, unemployed, alcoholism, drug addiction, transportation, low edu. Level, literacy, decrease access to med. care, senior living, rehab)? @ -No Was there de-escalation of care discussed even if they declined (Discuss DNR or withdrawal of care, Hospice)? DNR status @ -No What co-morbidities impacted this encounter? (DM, HTN, Smoking, COPD, CAD, Cancer, CVA, ARF, Chemo, Hep., AIDS, mental health diagnosis, sleep apnea, morbid obesity)? @ -None Was patient admitted / discharged? Hospital course, mention meds given and route, prescriptions, significant lab abnormalities, going to OR and other pertinent info. @ -Discharged patient had corneal foreign body which was removed without complications patient discharged on Tobrex eyedrops with close follow-up with ophthalmology patient's tetanus was updated. Undiagnosed new problem with uncertain prognosis? @ -No Drug Therapy requiring intensive monitoring for toxicity (Heparin, Nitro, Insulin, Cardizem)? @ -No Were any procedures done? @ -No Diagnosis/symptom? @ -Corneal foreign body Acute, or Chronic, or Acute on Chronic? @ -Acute Uncomplicated (without systemic symptoms) or Complicated (systemic symptoms)? @ -Uncomplicated Side effects of treatment? @ -No Exacerbation, Progression, or Severe Exacerbation? @ -No Poses a threat to life or bodily function? How? (Chest pain, [place], [place], pneumonia, PE, COPD, DKA, ARF, appy, cholecystitis, CVA, Diverticulitis, Homicidal, Suicidal, threat to staff... and all critical care pts) @ -No Disposition Clinical Impression: Corneal foreign body Disposition: HOME SELF-CARE Condition: Stable Instructions (If sedation given, give patient instructions): Eye Foreign Body (ED) Additional Instructions: Use Tobrex eyedrops 1 drop every 4 hours for 5 days please return to the Emergency Department if symptoms worsen or any other concerns. Is patient prescribed a controlled substance at d/c from ED?: No Referrals: Yuval Mckeon Jr, DO [Primary Care Provider] - 1-2 days Je Rao MD [STAFF PHYSICIAN] - 1-2 days Time of Disposition: 10:31
[2024-11-11 10:26] VITALS: BP 138/80; PULSE 72; RESP 18; TEMP 98.4
[2024-11-11] MEDS ORDERED: DIPH,PERTUS(ACELL)TETVAC-LF 0.5 ML VIAL IM ONE (10:30)
[2024-11-11] MEDS: TOBRAMYCIN 0.3% OPHTH DROPS 5 ML BTL RIGHT EYE STA (10:36)
== END 2024-11-11 10:41 | disposition home or self-care (01) ==
LOC: EC 09:42
DX: T15.01XA Foreign body in cornea, right eye, initial encounter (principal); F17.200 Nicotine dependence, unspecified, uncomplicated; W44.8XXA Other foreign body entering into or through a natural orifice, initial encounter; Y99.0 Civilian activity done for income or pay
CPT/HCPCS: 65205; 99283